=== PATIENT | female | born 1935 | race Caucasian/White ===

== ENCOUNTER → 2018-05-20 | Outpatient (CLI) | payer OTHER | LOC: MNL 17:46 | PROVIDERS: ATTEND Pediatrics | DX: N32.81 Overactive bladder (principal) ==

== ENCOUNTER → 2018-09-01 | Outpatient (CLI) | payer MEDICARE, MEDICAID ==
[2018-09-01 16:17] LABS: BILIRUBIN,URINE NEGATIVE (NEGATIVE); CLARITY,URINE CLEAR; COLOR,URINE YELLOW; GLUCOSE, URINE (UA) NEGATIVE (NEGATIVE); KETONES,URINE NEGATIVE (NEGATIVE); NITRITE,URINE NEGATIVE (NEGATIVE); PH,URINE 6.5 (5-9); PROTEIN,URINE NEGATIVE (NEGATIVE)
[2018-09-01 16:18] LABS: BACTERIA,URINE NEGATIVE /HPF; LEUKOCYTE ESTERASE ,URINE NEGATIVE (NEGATIVE); UROBILINOGEN,URINE NORMAL (NORMAL)
== END ==
LOC: LAB FS 15:22
PROVIDERS: ATTEND Pediatrics
DX: R30.0 Dysuria (principal)
CPT/HCPCS: 81000

== ENCOUNTER → 2018-12-11 | Outpatient (CLI) | payer MEDICARE, MEDICAID ==
--- NOTE | 2018-12-11 15:09 | Diagnostic Imaging Report ---
INDICATION: Bilateral shoulder pain. TIME OF EXAM: 2:24 PM FINDINGS: Multiple views of bilateral shoulders were obtained. Left shoulder shows normal glenohumeral alignment. There is normal acromioclavicular alignment. Acromiohumeral space is significantly narrowed consistent with chronic rotator cuff arthropathy. No fracture is seen. There are degenerative changes of the left shoulder glenohumeral joint. Right shoulder does demonstrate abnormal location of the humeral head in relation to the glenoid. This does project anteriorly and is suggestive of anterior shoulder dislocation/subluxation. Clinical correlation is recommended. Acromioclavicular alignment is normal. There are severe degenerative changes at the glenohumeral joint. No fractures are seen. IMPRESSION: Bilateral chronic changes. There also appears to be right shoulder anterior dislocation/subluxation. No acute fractures are seen. Dictated by: Dictated on workstation # [id number]
== END ==
LOC: RAD FS 14:15
PROVIDERS: ATTEND Nurse Practitioner
DX: M19.011 Primary osteoarthritis, right shoulder (principal); M19.012 Primary osteoarthritis, left shoulder

== ENCOUNTER → 2019-01-05 | Outpatient (CLI) | payer MEDICARE, MEDICAID ==
[2019-01-05 16:26] LABS: CLARITY,URINE TURBID; COLOR,URINE YELLOW; PROTEIN,URINE 1+ (NEGATIVE)
[2019-01-05 16:27] LABS: BACTERIA,URINE LARGE /HPF; BILIRUBIN,URINE NEGATIVE (NEGATIVE); GLUCOSE, URINE (UA) NEGATIVE (NEGATIVE); KETONES,URINE TRACE (NEGATIVE); LEUKOCYTE ESTERASE ,URINE 3+ (NEGATIVE); NITRITE,URINE NEGATIVE (NEGATIVE); WBC,URINE TNTC /HPF
== END ==
LOC: LAB FS 14:54
PROVIDERS: ATTEND Pediatrics
DX: R31.9 Hematuria, unspecified (principal)
CPT/HCPCS: 81000; 87077; 87088

== ENCOUNTER 2019-01-07 02:28 | Emergency (ER) | payer MEDICARE, MEDICAID ==
[~2019-01-07] VITALS: Ht 152 cm; Wt 44.0 kg
--- NOTE | 2019-01-07 02:44 | ED General ---
General Chief Complaint: Cardiac/General Problems Stated Complaint: FACIAL SWELLING, RAPID HEART RATE Source of Information: Patient, EMS Exam Limitations: Other (clinical condition) History of Present Illness Date Seen by Provider: Jan 07, 2019 Time Seen by Provider: 02:30 Initial Comments The patient is an 83-year-old female who presents via EMS from [facility] for evaluation of hypertension, tachycardia, questionable right-sided facial swelling, and questionable slurred speech. Apparently the patient pressed her call light in the middle the night stating that she "wasn't feeling quite right". He was found that her blood pressure was elevated to 168/115. At that time it was felt like she might have some right-sided facial swelling and that she was having some difficulty speaking. She does have a history of Parkinson's and is a DO NOT RESUSCITATE. Per [facility] documentation the patient's daughter is in route to the emergency department. The patient is difficult to understand due to her parkinsonian disease and it is unknown if this is her baseline. She denies vision changes, headache, neck pain or neck stiffness, chest pain or shortness of breath, abdominal or back pain, focal weakness or focal numbness. There is no facial droop upon arrival. Her blood pressure has spontaneously improved to approximately 140/90. Per the [facility] doctor mentation the patient was diagnosed with UTI yesterday and was started on ciprofloxacin. Timing/Duration: 1 Hour Severity: Mild Associated Systoms: Denies Symptoms Allergies and Home Medications Allergies Coded Allergies: hydrochlorothiazide (Verified Allergy, Unknown, 01/07/19) ibuprofen (Verified Allergy, Unknown, 01/07/19) Patient Home Medication List Home Medication List Reviewed: Yes Review of Systems Review of Systems Constitutional: no symptoms reported EENTM: no symptoms reported Respiratory: no symptoms reported Cardiovascular: no symptoms reported Genitourinary: no symptoms reported Musculoskeletal: no symptoms reported Skin: no symptoms reported Psychiatric/Neurological: Other (difficulty speaking) Hematologic/Lymphatic: No Symptoms Reported Immunological/Allergic: no symptoms reported All Other Systems Reviewed Negative Unless Noted: Yes Past Geopzoz-Aeultz-Guaxmp Hx Past Med/Social Hx: Reviewed Nursing Past Med/Soc Hx Patient Social History Recent Foreign Travel: No Contact w/Someone Who Travel: No Physical Exam Vital Signs Vital Signs - First Documented 01/07/19 02:46 Temp 37.3 Pulse 109 B/P (MAP) 142/90 (107) Pulse Ox 94 O2 Delivery Room Air Capillary Refill : Height, Weight, BMI Height: '" Weight: lbs. oz. kg; BMI Method: General Appearance: No Apparent Distress HEENT: PERRL/EOMI, Pharynx Normal Neck: Full Range of Motion, Non Tender, Supple Respiratory: Chest Non Tender, Lungs Clear, Normal Breath Sounds, No Accessory Muscle Use, No Respiratory Distress Cardiovascular: Regular Rate, Rhythm, No Edema, No Murmur, Normal Peripheral Pulses Gastrointestinal: Normal Bowel Sounds, Non Tender, Soft Extremity: Normal Capillary Refill, Non Tender, No Calf Tenderness Neurologic/Psychiatric: Alert, No Motor/Sensory Deficits, Normal Mood/Affect, Other (no facial droop, speech is difficult to understand) Skin: Normal Color, Warm/Dry Progress/Results/Core Measures Suspected Sepsis SIRS Temperature: Pulse: Respiratory Rate: Laboratory Tests 01/07/19 02:45: White Blood Count 2.9L Blood Pressure / Mean: Laboratory Tests 01/07/19 02:45: Creatinine 0.89, INR Comment 1.1, Platelet Count 220, Total Bilirubin 1.4H Results/Orders Lab Results Laboratory Tests Test 01/07/19 02:45 Range/Units White Blood Count 2.9 L 4.3-11.0 10^3/uL Red Blood Count 4.40 4.35-5.85 10^6/uL Hemoglobin 13.9 11.5-16.0 G/DL Hematocrit 41 35-52 % Mean Corpuscular Volume 94 80-99 FL Mean Corpuscular Hemoglobin 32 25-34 PG Mean Corpuscular Hemoglobin Concent 34 32-36 G/DL Red Cell Distribution Width 15.7 H 10.0-14.5 % Platelet Count 220 130-400 10^3/uL Mean Platelet Volume 9.2 7.4-10.4 FL Neutrophils (%) (Auto) 88 H 42-75 % Lymphocytes (%) (Auto) 9 L 12-44 % Monocytes (%) (Auto) 1 0-12 % Eosinophils (%) (Auto) 2 0-10 % Basophils (%) (Auto) 0 0-10 % Neutrophils # (Auto) 2.5 1.8-7.8 X 10^3 Lymphocytes # (Auto) 0.3 L 1.0-4.0 X 10^3 Monocytes # (Auto) 0.0 0.0-1.0 X 10^3 Eosinophils # (Auto) 0.1 0.0-0.3 10^3/uL Basophils # (Auto) 0.0 0.0-0.1 10^3/uL Neutrophils % (Manual) 42 % Lymphocytes % (Manual) 12 % Monocytes % (Manual) 3 % Eosinophils % (Manual) 1 % Metamyelocytes % 1 % Band Neutrophils 41 % Blood Morphology Comment NORMAL Prothrombin Time 14.8 H 12.2-14.7 SEC INR Comment 1.1 0.8-1.4 Activated Partial Thromboplast Time 29 24-35 SEC Sodium Level 131 L 135-145 MMOL/L Potassium Level 5.0 3.6-5.0 MMOL/L Chloride Level 92 L 98-107 MMOL/L Carbon Dioxide Level 24 21-32 MMOL/L Anion Gap 15 H 5-14 MMOL/L Blood Urea Nitrogen 27 H 7-18 MG/DL Creatinine 0.89 0.60-1.30 MG/DL Estimat Glomerular Filtration Rate 60 BUN/Creatinine Ratio 30 Glucose Level 99 70-105 MG/DL Calcium Level 9.2 8.5-10.1 MG/DL Corrected Calcium 9.4 8.5-10.1 MG/DL Magnesium Level 1.6 1.6-2.4 MG/DL Total Bilirubin 1.4 H 0.1-1.0 MG/DL Aspartate Amino Transf (AST/SGOT) 68 H 5-34 U/L Alanine Aminotransferase (ALT/SGPT) 15 0-55 U/L Alkaline Phosphatase 236 H 40-136 U/L Troponin I < 0.30 <0.30 NG/ML Pro-B-Type Natriuretic Peptide 5440.0 H <75.0 PG/ML Total Protein 6.7 6.4-8.2 GM/DL Albumin 3.8 3.2-4.5 GM/DL My Orders Orders - KENDALL CORNEJO DO Cbc With Automated Diff (01/07/19 02:36) Magnesium (01/07/19 02:36) Chest 1 View Ap/Pa Only (01/07/19 02:36) Ekg Tracing (01/07/19 02:36) Comprehensive Metabolic Panel (01/07/19 02:36) Protime With Inr (01/07/19 02:36) Partial Thromboplastin Time (01/07/19 02:36) O2 (01/07/19 02:36) Monitor-Rhythm Ecg Trace Only (01/07/19 02:36) Ed Iv/Invasive Line Start (01/07/19 02:36) Troponin I Fs (01/07/19 02:36) Ct Head Wo (01/07/19 02:36) Ua Culture If Indicated (01/07/19 02:36) Probnp Fs (01/07/19 03:03) Manual Differential (01/07/19 02:45) Furosemide Injection (Lasix Injection) (01/07/19 03:45) Medications Given in ED Current Medications Medications Dose Ordered Sig/Willie Route Start Time Stop Time Status Last Admin Dose Admin Furosemide 40 mg ONCE ONCE IVP 01/07/19 03:45 01/07/19 03:47 DC 01/07/19 03:52 40 MG Vital Signs/I&O 01/07/19 02:46 Temp 37.3 Pulse 109 B/P (MAP) 142/90 (107) Pulse Ox 94 O2 Delivery Room Air Capillary Refill : Progress Note : Progress Note @0300 - The patient's daughter arrives at this time and does not feel like there is any facial swelling or droop. She states the patient does not have her teeth and and this could be part of the reason why she is having difficulty speaking. She reports the patient has had a TIA in the past. @0312 - Pt noted to have right shoulder dislocation however she is denying acute pain or injury and this was demonstrated on an XR from 12/11/18. @0350 - Family prefers [facility] as the patient has received care there recently. @0400 - Case d/w the transfer line at [facility], the hospitalist [employer] Gris Irving will call back shortly. @0414 - Gris Irving states that she will talk about supervisor type disk quality control and plans to accept the patient to a telemetry bed. They will call back shortly to confirm. @0428 - Pt accepted for transfer at [facility]. ECG EKG : Comment @0237 - Atrial flutter, rate of 95, normal axis, no acute ischemic findings noted, no STEMI, reviewed and interpreted by myself Departure Impression Primary Impression: Acute exacerbation of CHF (congestive heart failure) Additional Impression: Requires supplemental oxygen Disposition: XFER SHT-TRM HOSP Condition: Stable Transfer Transfer Reason: Patient preference Time Spoke to Accepting Phy: 04:14 Transfer Progress Notes Gris Irving PARK MAINTAINER at [facility] accepts the transfer to a tele bed Transfer Time: 04:15 Transfer Facility: [facility] Method of Transfer: EMS Departure-Patient Inst. Referrals: NICA STONE MD (PCP/Family) Primary Care Physician KENDALL CORNEJO DO Jan 07, 2019 02:43
[2019-01-07 03:37] LABS: HEMATOCRIT 41 % (35-52); HEMOGLOBIN 13.9 G/DL (11.5-16.0); MEAN CORPUSCULAR HEMOGLOBIN 32 PG (25-34); MEAN CORPUSCULAR HGB CONC 34 G/DL (32-36); MEAN CORPUSCULAR VOLUME 94 FL (80-99); WHITE BLOOD COUNT 2.9 10^3/uL (4.3-11.0)
[2019-01-07 03:38] LABS: BASOPHILS % (AUTO) 0 % (0-10); EOSINOPHILS # (AUTO) 0.1 10^3/uL (0.0-0.3); EOSINOPHILS % (AUTO) 2 % (0-10); LYMPHOCYTES # (AUTO) 0.3 X 10^3 (1.0-4.0); LYMPHOCYTES % (AUTO) 9 % (12-44); MEAN PLATELET VOLUME 9.2 FL (7.4-10.4); MONOCYTES % (AUTO) 1 % (0-12); NEUTROPHILS # (AUTO) 2.5 X 10^3 (1.8-7.8); NEUTROPHILS % (AUTO) 88 % (42-75); PLATELET COUNT 220 10^3/uL (130-400); RED CELL DISTRIBUTION WIDTH 15.7 % (10.0-14.5)
[2019-01-07 03:39] LABS: BAND NEUTROPHILS 41 %; EOSINOPHILS % (MANUAL) 1 %; LYMPHOCYTES % (MANUAL) 12 %; METAMYELOCYTES % 1 %; MONOCYTES % (MANUAL) 3 %; NEUTROPHILS % (MANUAL) 42 %
[2019-01-07 03:40] LABS: RBC MORPH NORMAL
[2019-01-07 03:41] LABS: BILIRUBIN,TOTAL 1.4 MG/DL (0.1-1.0); CALCIUM 9.2 MG/DL (8.5-10.1); CREATININE SERUM 0.89 MG/DL (0.60-1.30); MAGNESIUM 1.6 MG/DL (1.6-2.4)
[2019-01-07 03:42] LABS: ALBUMIN 3.8 GM/DL (3.2-4.5); TOTAL PROTEIN 6.7 GM/DL (6.4-8.2)
[2019-01-07 03:43] LABS: INR 1.1 (0.8-1.4); PROTHROMBIN TIME PATIENT 14.8 SEC (12.2-14.7)
[2019-01-07] MEDS ORDERED: FUROSEMIDE 40 MG/4 ML INJ (LASIX) IVP ONE (03:45)
[2019-01-07 05:00] VITALS: BP 117/66
--- NOTE | 2019-01-07 06:47 | Diagnostic Imaging Report ---
PROCEDURE: CT head without contrast. TECHNIQUE: Multiple contiguous axial images were obtained through the brain without the use of intravenous contrast. Auto Exposure Controls were utilized during the CT exam to meet ALARA standards for radiation dose reduction. INDICATION: Onset of hypertension along with facial swelling and slurred speech. COMPARISON: None FINDINGS: There are diffuse atrophic changes with prominence of the ventricles and sulci. There are scattered areas of decreased attenuation, nonspecific but likely changes of chronic small vessel ischemic disease. There is otherwise normal waite-white differentiation. No abnormal areas of attenuation to suggest edema from ischemia. There is no midline shift or mass effect. No evidence for acute intracranial hemorrhage or abnormal extra-axial fluid collection. Bony calvarium is intact. Paranasal sinuses are clear. Mastoid air cells also appear clear. IMPRESSION: 1. No CT evidence for acute intracranial abnormality. 2. Age-related atrophic changes with changes of small vessel ischemic disease. A preliminary report was provided by [facility]. Dictated by: Dictated on workstation # [id number]
--- NOTE | 2019-01-07 06:56 | Diagnostic Imaging Report ---
INDICATION: Onset of hypertension, facial swelling and slurred speech. TECHNIQUE: Single view chest 2:34 AM. CORRELATION STUDY: None FINDINGS: Heart size enlarged. Mediastinum prominent. There is component of pulmonary vascular congestion present. Largely chronic appearing changes about the lung parenchyma including interstitial markings. Component of mild edema not excluded. No consolidating infiltrate. No effusion. No pneumothorax. There is a dislocated right shoulder with markedly advanced degenerative changes of both shoulders. IMPRESSION: 1. Cardiac enlargement with component of mild vascular congestion. Component of mild interstitial edema also suspected. 2. Dislocated right shoulder. Dictated by: Dictated on workstation # [id number]
== END 2019-01-07 05:00 | disposition short-term general hospital (02) ==
LOC: EDUNIT# 02:28 → ER FS 02:30
DX: I11.0 Hypertensive heart disease with heart failure (principal); I50.9 Heart failure, unspecified; Z99.81 Dependence on supplemental oxygen; Z88.6 Allergy status to analgesic agent; Z88.8 Allergy status to other drugs, medicaments and biological substances
CPT/HCPCS: 36415; 70450; 71045; 80053; 83735; 83880; 84484; 85007; 85027; 85610; 85730; 93005; 93041; 96374

== ENCOUNTER 2019-03-08 06:42 | Emergency (ER) | payer MEDICARE, MEDICAID ==
[~2019-03-08] VITALS: Ht 147.3 cm; Wt 50.3 kg
--- NOTE | 2019-03-08 06:58 | ED Cough/URI ---
General Chief Complaint: Respiratory Problems Stated Complaint: RESP ISSUES Source: patient, EMS, senior living records Exam Limitations: no limitations History of Present Illness Date Seen by Provider: Mar 08, 2019 Time Seen by Provider: 06:55 Initial Comments Patient [facility] in by [facility] from [facility]. jail reports that they were concerned that the patient was having labored breathing. Patient doesn't have any complaints and is not sure why she is here. She denies any shortness of breath chest pain or any other systemic complaints. Allergies and Home Medications Allergies Coded Allergies: hydrochlorothiazide (Verified Allergy, Unknown, 01/07/19) ibuprofen (Verified Allergy, Unknown, 01/07/19) Patient Home Medication List Home Medication List Reviewed: Yes Review of Systems Review of Systems Constitutional: see HPI; No chills, No fever EENTM: no symptoms reported Respiratory: cough; No short of breath Cardiovascular: no symptoms reported Gastrointestinal: no symptoms reported Genitourinary: no symptoms reported Musculoskeletal: no symptoms reported Skin: no symptoms reported Past Yseblqb-Wyidhw-Fosmne Hx Past Med/Social Hx: Reviewed Nursing Past Med/Soc Hx Patient Social History 2nd Hand Smoke Exposure: No Recent Foreign Travel: No Contact w/Someone Who Travel: No Past Medical History Respiratory: No Cardiac: Yes Hypertension, Irregular Heartbeat Neurological: Yes Parkinson's Disease Genitourinary: No Gastrointestinal: No Musculoskeletal: Yes Arthritis Endocrine: Yes Hypothyroidsim HEENT: No Cancer: No Psychosocial: No Integumentary: No Blood Disorders: No Physical Exam Vital Signs - First Documented 03/08/19 06:50 Temp 36.1 Pulse 67 Resp 12 B/P (MAP) 207/116 (146) Pulse Ox 93 O2 Delivery Room Air Capillary Refill : Height: '" Weight: lbs. oz. kg; 19.00 BMI Method: General Appearance: WD/WN, no apparent distress Neck: non-tender Respiratory: chest non-tender, normal breath sounds, decreased breath sounds (mild diffuse) Cardiovascular: normal peripheral pulses, regular rate, rhythm Gastrointestinal: non tender Extremities: normal range of motion Neurologic/Psychiatric: no motor/sensory deficits, alert Skin: normal color Progress/Results/Core Measures Suspected Sepsis SIRS Temperature: Pulse: Respiratory Rate: Laboratory Tests 03/08/19 06:50: White Blood Count 8.4 Blood Pressure / Mean: Laboratory Tests 03/08/19 06:50: Creatinine 0.74, Platelet Count 293 Results/Orders Lab Results Laboratory Tests Test 03/08/19 06:50 Range/Units White Blood Count 8.4 4.3-11.0 10^3/uL Red Blood Count 3.88 L 4.35-5.85 10^6/uL Hemoglobin 12.4 11.5-16.0 G/DL Hematocrit 37 35-52 % Mean Corpuscular Volume 96 80-99 FL Mean Corpuscular Hemoglobin 32 25-34 PG Mean Corpuscular Hemoglobin Concent 33 32-36 G/DL Red Cell Distribution Width 14.8 H 10.0-14.5 % Platelet Count 293 130-400 10^3/uL Mean Platelet Volume 9.1 7.4-10.4 FL Sodium Level 135 135-145 MMOL/L Potassium Level 4.0 3.6-5.0 MMOL/L Chloride Level 95 L 98-107 MMOL/L Carbon Dioxide Level 28 21-32 MMOL/L Anion Gap 12 5-14 MMOL/L Blood Urea Nitrogen 18 7-18 MG/DL Creatinine 0.74 0.60-1.30 MG/DL Estimat Glomerular Filtration Rate > 60 BUN/Creatinine Ratio 24 Glucose Level 90 70-105 MG/DL Calcium Level 9.1 8.5-10.1 MG/DL Pro-B-Type Natriuretic Peptide 3477.0 H <75.0 PG/ML Micro Results Microbiology 03/08/19 Influenza Types A,B Antigen (JOSE) - Final, Complete My Orders Orders - CRISTINO DIAZ DO Basic Metabolic Panel (03/08/19 06:58) Cbc No Diff (03/08/19 06:58) Influenza A And B Antigens (03/08/19 06:58) Probnp Fs (03/08/19 06:58) Chest Pa/Lat (2 View) (03/08/19 06:58) Nitroglycerin 0.4 Mg Btl 25's (Nitrostat (03/08/19 08:15) Vital Signs/I&O 03/08/19 06:50 Temp 36.1 Pulse 67 Resp 12 B/P (MAP) 207/116 (146) Pulse Ox 93 O2 Delivery Room Air Capillary Refill : Progress Note : Time: 08:15 Progress Note Patient with no acute findings on lab, x-ray or physical exam. Patient does have elevated blood pressure but has chronic hypertension. Blood pressure improved from systolics of 200 and systolics of 184 with no treatment. She is due for her morning blood pressure medication. We will give her a nitroglycerin sublingual to help with the blood pressure and a mild chronic pulmonary edema discharge her back to the senior living where she should take her a.m. blood pressure medications. I did suggest with family that they follow-up with Dr. [place] for a reevaluation of her blood pressure possibly blood pressure medication since she is on a very small dose. Patient shows no signs of a bacterial pneumonia or bronchitis. Patient will be discharged back to senior living in stable condition. Departure Impression Primary Impression: Cough Additional Impressions: Chronic pulmonary edema Hypertension Qualified Codes: I10 - Essential (primary) hypertension Disposition: HOME, SELF-CARE Condition: Stable Departure-Patient Inst. Referrals: NICA COLORADO MD (PCP/Family) Primary Care Physician Follow-up next week for recheck of symptoms Patient Instructions: Cough, Adult (DC), High Blood Pressure (DC), Medicines fo r High Blood Pressure Add. Discharge Instructions: Emergency department focuses on treating and ruling out life-threatening diseases. Whenever possible, a diagnosis is given. However, most patients are given an impression based on their history, physical exam, and workup during your brief time in the ER. Information about probable diagnosis and other educat ional material has been provided. Please take the time to read and understand this information. It is very important that you follow up with a physician as discussed during the visit today. Failure to adhere to your follow-up instructions may lead to severe disability, injury, or so please make sure to keep your appointments or obtain one as requested. Please keep in mind the emergency department is not designed to your primary care or "family doctor" and nonurgent issues are best evaluated by an outpatient physician All discharge instructions reviewed with patient and/or family. Voiced understanding. CRISTINO DIAZ DO Mar 08, 2019 06:58
[2019-03-08 07:07] LABS: HEMOGLOBIN 12.4 G/DL (11.5-16.0); MEAN PLATELET VOLUME 9.1 FL (7.4-10.4); RED CELL DISTRIBUTION WIDTH 14.8 % (10.0-14.5); WHITE BLOOD COUNT 8.4 10^3/uL (4.3-11.0)
--- NOTE | 2019-03-08 07:30 | NUR ---
Addressed Hypertension with Dr Cuevas. Pt has HTN med due at [facility], this is not available in ER. Dr awaiting CXR to correlate. Family is arriving, RN giving updates. Pending work up. No Kristian-Stoke breathing noted but does have short 20-30 sec shallow breathes <10/min and triggers apnea alarm. Pt is physically immobile and decreased muscle tone.
[2019-03-08 07:32] LABS: BUN/CREATININE RATIO 24; CALCIUM 9.1 MG/DL (8.5-10.1); CARBON DIOXIDE 28 MMOL/L (21-32); CHLORIDE 95 MMOL/L (98-107); CREATININE SERUM 0.74 MG/DL (0.60-1.30); GFR ESTIMATED > 60; GLUCOSE 90 MG/DL (70-105); SODIUM 135 MMOL/L (135-145)
--- NOTE | 2019-03-08 08:06 | Diagnostic Imaging Report ---
EXAMINATION: Chest 2 view HISTORY: Cough for a few weeks. COMPARISON: 01/07/2019 FINDINGS: Cardiomegaly is again noted with central pulmonary vascular congestion. Prominent interstitial markings are seen throughout the lungs. No focal consolidation or mass. No large pleural effusion or pneumothorax. No acute osseous abnormalities. Severe degenerative changes are again noted in the bilateral shoulder joints. IMPRESSION: 1. Cardiomegaly with central pulmonary vascular congestion and interstitial edema. These findings are similar to the prior exam. No focal consolidation. No large pleural effusion. Dictated by: Dictated on workstation # [id number]
[2019-03-08] MEDS ORDERED: NITROGLYCERIN 0.4 MG SL TABS BTL 25'S SL PRN (08:15)
--- NOTE | 2019-03-08 08:21 | NUR ---
Pt was administered 1 NTG 0.4 mg SL for HTN.
--- NOTE | 2019-03-08 08:45 | NUR ---
Ready for depart, call report to BUNNY Peña RN. Family have all their questions answered. Understanding of her BP medication not available in ED is to be given when returned to her room. Dr did not recommend a fast acting Clonidine for chronic HTN or a beta driss as pulse rate < 60 at times on monitor.
[2019-03-08 09:20] VITALS: BP 181/97
--- NOTE | 2019-03-08 09:20 | NUR ---
Pt discharged to [facility] staff transportation awake and alert with no complaints. Pt had just been incont for 2nd time and was changed and placed on bedpan for need for possible BM. Pt did not have a BM. New depends placed on pt. Utilized gait belt to lift and transfer to . Family present and verbalize understanding of instructions being given to [facility]. Called report to Mariana Pena RN at . Pt's instructions and labs/xray report placed in packet returned to long term.
== END 2019-03-08 09:20 | disposition home or self-care (01) ==
LOC: EDUNIT# 06:42 → ER FS 06:44
DX: J81.1 Chronic pulmonary edema (principal); I10 Essential (primary) hypertension; G20 Parkinson's disease; E03.9 Hypothyroidism, unspecified; Z88.8 Allergy status to other drugs, medicaments and biological substances; Z88.6 Allergy status to analgesic agent
CPT/HCPCS: 36415; 71046; 80048; 83880; 85027; 87804

== ENCOUNTER → 2019-05-29 | Outpatient (CLI) | payer MEDICARE, MEDICAID ==
--- NOTE | 2019-05-29 13:53 | Diagnostic Imaging Report ---
PROCEDURE: CT head without contrast. TECHNIQUE: Multiple contiguous axial images were obtained through the brain without the use of intravenous contrast. Auto Exposure Controls were utilized during the CT exam to meet ALARA standards for radiation dose reduction. INDICATION: Severe headache. COMPARISON: 01/07/2019. FINDINGS: No hyperdense hemorrhage or space-occupying mass. No hydrocephalus or midline shift. Global atrophy is present. The periventricular white matter hypoattenuation is unchanged and most compatible with chronic microvascular ischemic disease. Bilateral cataract surgery has been performed. The mastoid air cells are clear. No skull fracture. IMPRESSION: 1. No acute intracranial process by CT. 2. Global atrophy with chronic microvascular ischemic disease, unchanged from 01/07/2019. Dictated by: Dictated on workstation # [id number]
== END ==
LOC: RAD FS 13:10
PROVIDERS: ATTEND Pediatrics
DX: I67.82 Cerebral ischemia (principal); G31.9 Degenerative disease of nervous system, unspecified
CPT/HCPCS: 70450

== ENCOUNTER 2019-08-23 08:02 | Emergency (ER) | payer MEDICARE, MEDICAID ==
--- OUTSIDE RECORDS SUMMARY | 2019-08-23 08:07 | XMS REPORT | Continuity of Care Document ---
Author Organization Unknown Address Unknown Phone Unavailable Allergies Active Description Code Type Severity Reaction Onset Reported/Identified Relationship to Patient Clinical Status Yes hydrochlorothiazide [id number] Drug Allergy Unknown N/A 01/07/2019 Yes ibuprofen [id number] Drug Allergy Unknown N/A 01/07/2019 Medications There is no data. Problems Date Dx Coded Attending Type Code Diagnosis Diagnosed By 05/21/2018 NICA STONE MD, Ot N32.81 OVERACTIVE BLADDER 06/14/2018 NICA STONE MD, Ot N32.81 OVERACTIVE BLADDER 07/05/2018 NICA STONE MD, Ot N32.81 OVERACTIVE BLADDER 07/05/2018 NICA STONE MD, Ot N32.81 OVERACTIVE BLADDER 09/04/2018 NICA STONE MD Ot R30.0 DYSURIA 12/14/2018 BRUCE MORENO Ot M19.011 PRIMARY OSTEOARTHRITIS, RIGHT SHOULDER 12/14/2018 BRUCE MORENO Ot M19.012 PRIMARY OSTEOARTHRITIS, LEFT SHOULDER 01/07/2019 NICA STONE MD Ot N32.81 OVERACTIVE BLADDER 01/07/2019 NICA STONE MD Ot R30.0 DYSURIA 01/07/2019 BRUCE MORENO Ot M19.011 PRIMARY OSTEOARTHRITIS, RIGHT SHOULDER 01/07/2019 BRUCE MORENO Ot M19.012 PRIMARY OSTEOARTHRITIS, LEFT SHOULDER 01/07/2019 NICA STONE MD Ot R31.9 HEMATURIA, UNSPECIFIED 01/07/2019 CHANTAL ARGUETA DO Ot I11. 0 HYPERTENSIVE HEART DISEASE WITH HEART FA 01/07/2019 CHANTAL ARGUETA DO Ot I50. 9 HEART FAILURE, UNSPECIFIED 01/07/2019 CHANTAL ARGUETA DO Ot R00. 0 TACHYCARDIA, UNSPECIFIED 01/07/2019 CHANTAL ARGUETA DO Ot Z88. 6 ALLERGY STATUS TO ANALGESIC AGENT STATUS 01/07/2019 CHANTAL ARGUETA DO Ot Z88. 8 ALLERGY STATUS TO OTH DRUG/MEDS/BIOL SUB 01/07/2019 KENDALL DO, CHANTAL B Ot Z99. 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 9 HEART FAILURE, UNSPECIFIED 01/12/2019 KENDALL TOLLIVER, CHANTAL B Ot R00. 0 TACHYCARDIA, UNSPECIFIED 01/12/2019 KENDALL TOLLIVER, CHANTAL B Ot Z88. 6 ALLERGY STATUS TO ANALGESIC AGENT STATUS 01/12/2019 KENDALL , CHANTAL B Ot Z88. 8 ALLERGY STATUS TO OTH DRUG/MEDS/BIOL SUB 01/12/2019 KENDALL , CHANTAL B Ot Z99. 81 DEPENDENCE ON SUPPLEMENTAL OXYGEN 01/22/2019 CHASE COOPER, NICA Meeks Ot R31.9 HEMATURIA, UNSPECIFIED 03/08/2019 DIAZ DO, CRISTINO L Ot E03.9 HYPOTHYROIDISM, UNSPECIFIED 03/08/2019 DIAZ DO, CRISTINO L Ot G20 PARKINSON'S DISEASE 03/08/2019 DIAZ DO, CRISTINO L Ot I10 ESSENTIAL (PRIMARY) HYPERTENSION 03/08/2019 DIAZ DO, CRISTINO L Ot J81.1 CHRONIC PULMONARY EDEMA 03/08/2019 DIAZ DO, CRISTINO L Ot R05 COUGH 03/08/2019 DIAZ DO, CRISTINO L Ot Z88.6 ALLERGY STATUS TO ANALGESIC AGENT STATUS 03/08/2019 DIAZ DO, CRISTINO L Ot Z88.8 ALLERGY STATUS TO OTH DRUG/MEDS/BIOL SUB 03/10/2019 DIAZ DO, CRISTINO L Ot E03.9 HYPOTHYROIDISM, UNSPECIFIED 03/10/2019 DIAZ DO, CRISTINO L Ot G20 PARKINSON'S DISEASE 03/10/2019 DIAZ DO, CRISTINO L Ot I10 ESSENTIAL (PRIMARY) HYPERTENSION 03/10/2019 DIAZ DO, CRISTINO L Ot J81.1 CHRONIC PULMONARY EDEMA 03/10/2019 DIAZ DO, CRISTINO L Ot R05 COUGH 03/10/2019 DIAZ DO, CRISTINO L Ot Z88.6 ALLERGY STATUS TO ANALGESIC AGENT STATUS 03/10/2019 DIAZ DO, CRISTINO L Ot Z88.8 ALLERGY STATUS TO OTH DRUG/MEDS/BIOL SUB 05/29/2019 NICA STONE MD Ot N32.81 OVERACTIVE BLADDER 05/29/2019 NICA STONE MD Ot R30.0 DYSURIA 05/29/2019 BRUCE MORENO Ot M19.011 PRIMARY OSTEOARTHRITIS, RIGHT SHOULDER 05/29/2019 BRUCE MORENO Ot M19.012 PRIMARY OSTEOARTHRITIS, LEFT SHOULDER 05/29/2019 CHASE COOPER, NICA Meeks Ot R31.9 HEMATURIA, UNSPECIFIED 06/01/2019 NICA STONE MD Ot N32.81 OVERACTIVE BLADDER 06/01/2019 NICA STONE MD Ot R30.0 DYSURIA 06/01/2019 BRUCE MORENO Ot M19.011 PRIMARY OSTEOARTHRITIS, RIGHT SHOULDER 06/01/2019 BRUCE MORENO Ot M19.012 PRIMARY OSTEOARTHRITIS, LEFT SHOULDER 06/01/2019 CHASE COOPER, NICA Meeks Ot R31.9 HEMATURIA, UNSPECIFIED 06/10/2019 CHASE COOPER, NICA Meeks Ot N32.81 OVERACTIVE BLADDER 06/10/2019 CHASE COOPER, NICA Meeks Ot R30.0 DYSURIA 06/10/2019 BRUCE MORENO Ot M19.011 PRIMARY OSTEOARTHRITIS, RIGHT SHOULDER 06/10/2019 BRUCE MORENO Ot M19.012 PRIMARY OSTEOARTHRITIS, LEFT SHOULDER 06/10/2019 CHASE COOPER, NICA Meeks Ot R31.9 HEMATURIA, UNSPECIFIED 06/10/2019 CHASE COOPER, NICA Meeks Ot G31.9 DEGENERATIVE DISEASE OF NERVOUS SYSTEM, 06/10/2019 CHASE COOPER, NICA Meeks Ot I67.82 CEREBRAL ISCHEMIA 06/16/2019 CHASE COOPER, NICA Meeks Ot G31.9 DEGENERATIVE DISEASE OF NERVOUS SYSTEM, 06/16/2019 CHASE COOPER, NICA Meeks Ot I67.82 CEREBRAL ISCHEMIA 06/17/2019 NICA STONE MD Ot G31.9 DEGENERATIVE DISEASE OF NERVOUS SYSTEM, 06/17/2019 NICA STONE MD Ot I67.82 CEREBRAL ISCHEMIA 06/18/2019 CHASE COOPER, NICA Meeks Ot G31.9 DEGENERATIVE DISEASE OF NERVOUS SYSTEM, 06/18/2019 CHASE COOPER, NICA Meeks Ot I67.82 CEREBRAL ISCHEMIA 06/19/2019 NICA STONE MD Ot N32.81 OVERACTIVE BLADDER 06/19/2019 CHASE COOPER, NICA Meeks Ot R30.0 DYSURIA 06/19/2019 BRUCE MORENO Ot M19.011 PRIMARY OSTEOARTHRITIS, RIGHT SHOULDER 06/19/2019 BRUCE MORENO Ot M19.012 PRIMARY OSTEOARTHRITIS, LEFT SHOULDER 06/19/2019 CHASE COOPER, NICA Meeks Ot R31.9 HEMATURIA, UNSPECIFIED 06/19/2019 NICA STONE MD, Ot G31.9 DEGENERATIVE DISEASE OF NERVOUS SYSTEM, 06/19/2019 NICA STONE MD, Ot I67.82 CEREBRAL ISCHEMIA 06/19/2019 NICA STONE MD, Ot N32.81 OVERACTIVE BLADDER 06/19/2019 NICA STONE MD, Ot R30.0 DYSURIA 06/19/2019 BRUCE MORENO Ot M19.011 PRIMARY OSTEOARTHRITIS, RIGHT SHOULDER 06/19/2019 BRUCE MORENO Ot M19.012 PRIMARY OSTEOARTHRITIS, LEFT SHOULDER 06/19/2019 NICA STONE MD, Ot R31.9 HEMATURIA, UNSPECIFIED 06/19/2019 NICA STONE MD, Ot G31.9 DEGENERATIVE DISEASE OF NERVOUS SYSTEM, 06/19/2019 NICA STONE MD, Ot I67.82 CEREBRAL ISCHEMIA Procedures There is no data. Results Test Result Range CULTURE, URINE - 05/27/18 16:58 CULTURE, URINE, ROUTINE SEE NOTE NRG [facility] - 06/03/18 09:58 GLUCOSE 96 mg/dL 65-99 UREA NITROGEN (BUN) 22 mg/dL 7-25 CREATININE 0.66 mg/dL 0.60-0.88 eGFR NON-AFR. [place] 81 mL/min/1.73m2 > OR = 60 eGFR 93 mL/min/1.73m2 > OR = 60 BUN/CREATININE RATIO NOT APPLICABLE (calc) 6-22 SODIUM 132 mmol/L 135-146 POTASSIUM 4.6 mmol/L 3.5-5.3 CHLORIDE 96 mmol/L 98-110 CARBON DIOXIDE 28 mmol/L 20-32 CALCIUM 8.7 mg/dL 8.6-10.4 [facility] - 07/01/18 09:58 GLUCOSE 94 mg/dL 65-99 UREA NITROGEN (BUN) 15 mg/dL 7-25 CREATININE 0.59 mg/dL 0.60-0.88 eGFR NON-AFR. [place] 84 mL/min/1.73m2 > OR = 60 eGFR 97 mL/min/1.73m2 > OR = 60 BUN/CREATININE RATIO 25 (calc) 6-22 SODIUM 135 mmol/L 135-146 POTASSIUM 4.3 mmol/L 3.5-5.3 CHLORIDE 98 mmol/L 98-110 CARBON DIOXIDE 26 mmol/L 20-32 CALCIUM 8.7 mg/dL 8.6-10.4 [facility] - 07/31/18 10:59 GLUCOSE 88 mg/dL 65-99 UREA NITROGEN (BUN) 17 mg/dL 7-25 CREATININE 0.66 mg/dL 0.60-0.88 eGFR NON-AFR. [place] 81 mL/min/1.73m2 > OR = 60 eGFR 93 mL/min/1.73m2 > OR = 60 BUN/CREATININE RATIO NOT APPLICABLE (calc) 6-22 SODIUM 129 mmol/L 135-146 POTASSIUM 4.3 mmol/L 3.5-5.3 CHLORIDE 94 mmol/L 98-110 CARBON DIOXIDE 28 mmol/L 20-32 CALCIUM 8.6 mg/dL 8.6-10.4 T4 FREE - 08/26/18 08:52 T4, FREE 0.8 ng/dL 0.8-1.8 TSH - 08/26/18 08:52 TSH 3.83 mIU/L 0.40-4.50 Complete urinalysis with reflex to cultu re - 09/01/18 14:40 Urine color determination YELLOW NRG Urine clarity determination CLEAR NR G Urine pH measurement by test strip 6.5 5-9 Specific gravity of urine by test strip < 1.016-1.022 Urine protein assay by test strip, semi-quantitative NEGATIVE NEGATIVE Urine glucose detection by automated test strip NE GATIVE NEGATIVE Erythrocytes detection in urine sediment by light micr oscopy NEGATIVE NEGATIVE Urine ketones detection by automated test strip NE GATIVE NEGATIVE Urine nitrite detection by test strip NEGATIVE NEGATIVE Urine total bilirubin detection by test strip NEGA TIVE NEGATIVE Urine urobilinogen measurement by automated test strip (mass/volume) NORMAL NORMAL Urine leukocyte esterase detection by dipstick NEG ATIVE NEGATIVE Automated urine sediment erythrocyte cou nt by microscopy (number/high power field) NONE NRG Automated urine sediment leukocyte count by microscopy (number/high power field) NONE NRG Bacteria detection in urine sediment by light microsco py NEGATIVE NRG Squamous epithelial cells detection in u rine sediment by light microscopy 2-5 NRG Crystals detection in urine sediment by light microsco py NONE NRG Casts detection in urine sediment by light microscopy NONE NRG Mucus detection in urine sediment by light microscopy NEGATIVE NRG Complete urinalysis with reflex to culture NO NRG Complete urinalysis with reflex to cultu re - 01/05/19 14:33 Urine color determination YELLOW NRG Urine clarity determination TURBID NR G Urine pH measurement by test strip 6.0 5-9 Specific gravity of urine by test strip 1.015 1.016-1.022 Urine protein assay by test strip, semi-quantitative 1+ NEGATIVE Urine glucose detection by automated test strip NE GATIVE NEGATIVE Erythrocytes detection in urine sediment by light micr oscopy 3+ NEGATIVE Urine ketones detection by automated test strip TR FLORES NEGATIVE Urine nitrite detection by test strip NEGATIVE NEGATIVE Urine total bilirubin detection by test strip NEGA TIVE NEGATIVE Urine urobilinogen measurement by automated test strip (mass/volume) 0.2 mg/dL NORMAL Urine leukocyte esterase detection by dipstick 3+ NEGATIVE Automated urine sediment erythrocyte cou nt by microscopy (number/high power field) [HPF] NRG Automated urine sediment leukocyte count by microscopy (number/high power field) TNTC NRG Bacteria detection in urine sediment by light microsco py LARGE NRG Squamous epithelial cells detection in u rine sediment by light microscopy NONE NRG Crystals detection in urine sediment by light microsco py NONE NRG Casts detection in urine sediment by light microscopy NONE NRG Mucus detection in urine sediment by light microscopy NEGATIVE NRG Complete urinalysis with reflex to culture YES NRG Bacterial urine culture - 01/05/19 14:33 Bacterial urine culture [id number] NRG COLONY COUNT >100,000/ML NRG FTX;REPORTABLE SUSCEPTIBILITY REPORTED 01-08-19, 1 152 NRG Dirithromycin susceptibility test by dis k diffusion - 01/05/19 14:33 Gentamicin susceptibility test by minimum inhibitory c oncentration > NRG Trimethoprim/sulfamethoxazole susceptibi lity test by minimum inhibitoryconcentration > NRG Levofloxacin susceptibility test by minimum inhibitory concentration > NRG Ampicillin susceptibility test by minimum inhibitory c oncentration > NRG Cefazolin susceptibility test by minimum inhibitory co ncentration 4 NRG Ceftriaxone susceptibility test by minimum inhibitory concentration <= NRG Ciprofloxacin susceptibility test by minimum inhibitor y concentration > NRG Meropenem susceptibility test by minimum inhibitory co ncentration <= NRG Nitrofurantoin susceptibility test by mi nimum inhibitory concentration 32 NRG Amoxicillin and clavulanate potassium susc JOSE = NRG Complete blood count (CBC) with automate d white blood cell (WBC) differential - 01/07/19 02:45 Blood leukocytes automated count (number/volume) 2.9 10*3/uL 4.3-11.0 Blood erythrocytes automated count (number/volume) 4.40 10*6/uL 4.35-5.85 Venous blood hemoglobin measurement (mass/volume) 13.9 g/dL 11.5-16.0 Blood hematocrit (volume fraction) 41 % 35-52 Automated erythrocyte mean corpuscular volume 94 [ foz_us] 80-99 Automated erythrocyte mean corpuscular h emoglobin (mass per erythrocyte) 32 pg 25-34 Automated erythrocyte mean corpuscular h emoglobin concentration measurement (mass/volume) 34 g/dL 32-36 Automated erythrocyte distribution width ratio 15. 7 % 10.0- 14.5 Automated blood platelet count (count/volume) 220 10*3/uL 130-400 Automated blood platelet mean volume measurement 9.2 [foz_us] 7.4-10.4 Automated blood neutrophils/100 leukocytes 88 % 42-75 Automated blood lymphocytes/100 leukocytes 9 % 12-44 Blood monocytes/100 leukocytes 1 % 0-12 Automated blood eosinophils/100 leukocytes 2 % 0-10 Automated blood basophils/100 leukocytes 0 % 0-10 Blood neutrophils automated count (number/volume) 2.5 10*3 1.8-7.8 Blood lymphocytes automated count (number/volume) 0.3 10*3 1.0-4.0 Blood monocytes automated count (number/volume) 0. 0 10*3 0.0-1.0 Automated eosinophil count 0.1 10*3/uL 0 .0-0.3 Automated blood basophil count (count/volume) 0.0 10*3/uL 0.0-0.1 Manual absolute plasma cell count - 12/17 06/03 02:45 Blood monocytes/100 leukocytes 3 % NRG Manual blood segmented neutrophils/100 leukocytes 42 % NRG Blood band neutrophils/100 leukocytes 41 % NRG Manual blood lymphocytes/100 leukocytes 12 % NRG Manual eosinophils/100 leukocytes in nose 1 % NRG Blood erythrocyte morphology finding identification NORMAL NRG Manual blood metamyelocytes/100 leukocytes 1 % NRG PROBNP FS - 01/07/19 02:45 PROBNP FS 5440.0 pg/mL <75.0 TROPONIN I FS - 01/07/19 02:45 TROPONIN I FS < 0.30 <0.30 Comprehensive metabolic panel - 01/07/19 02:45 Serum or plasma sodium measurement (moles/volume) 131 mmol/L 135-145 Serum or plasma potassium measurement (moles/volume) 5.0 mmol/L 3.6-5.0 Serum or plasma chloride measurement (moles/volume) 92 mmol/L 98-107 Carbon dioxide 24 mmol/L 21-32 Serum or plasma anion gap determination (moles/volume) 15 mmol/L 5-14 Serum or plasma urea nitrogen measurement (mass/volume ) 27 mg/dL 7-18 Serum or plasma creatinine measurement (mass/volume) 0.89 mg/dL 0.60-1.30 Serum or plasma urea nitrogen/creatinine mass ratio 30 NRG Serum or plasma creatinine measurement w ith calculation of estimated glomerular filtration rate 60 NRG Serum or plasma glucose measurement (mass/volume) 99 mg/dL 70-105 Serum or plasma calcium measurement (mass/volume) 9.2 mg/dL 8.5-10.1 Serum or plasma total bilirubin measurement (mass/volu me) 1.4 mg/dL 0.1-1.0 Serum or plasma alkaline phosphatase dylan surement (enzymatic activity/volume) 236 U/L 40-136 Serum or plasma aspartate aminotransfera se measurement (enzymatic activity/volume) 68 U/L 5-34 Serum or plasma alanine aminotransferase measurement (enzymatic activity/volume) 15 U/L 0-55 Serum or plasma protein measurement (mass/volume) 6.7 g/dL 6.4-8.2 Serum or plasma albumin measurement (mass/volume) 3.8 g/dL 3.2-4.5 CALCIUM CORRECTED 9.4 mg/dL 8.5-10.1 Magnesium - 01/07/19 02:45 Magnesium 1.6 mg/dL 1.6-2.4 PT panel in platelet poor plasma by coag ulation assay - 01/07/19 02:45 Prothrombin time (PT) in platelet poor plasma by coagu lation assay 14.8 s 12.2-14.7 INR in platelet poor plasma or blood by coagulation as say 1.1 0.8-1.4 Activated partial thromboplastin time (a PTT) in platelet poor plasma bycoagulation assay - 01/07/19 02:45 Activated partial thromboplastin time (a PTT) in platelet poor plasma bycoagulation assay 29 s 24-35 Automated blood complete blood count (he mogram) panel - 03/08/19 06:50 Blood leukocytes automated count (number/volume) 8.4 10*3/uL 4.3-11.0 Blood erythrocytes automated count (number/volume) 3.88 10*6/uL 4.35-5.85 Venous blood hemoglobin measurement (mass/volume) 12.4 g/dL 11.5-16.0 Blood hematocrit (volume fraction) 37 % 35-52 Automated erythrocyte mean corpuscular volume 96 [ foz_us] 80-99 Automated erythrocyte mean corpuscular h emoglobin (mass per erythrocyte) 32 pg 25-34 Automated erythrocyte mean corpuscular h emoglobin concentration measurement (mass/volume) 33 g/dL 32-36 Automated erythrocyte distribution width ratio 14. 8 % 10.0- 14.5 Automated blood platelet count (count/volume) 293 10*3/uL 130-400 Automated blood platelet mean volume measurement 9.1 [foz_us] 7.4-10.4 Whole blood basic metabolic panel - 02/16 05/06 06:50 Serum or plasma sodium measurement (moles/volume) 135 mmol/L 135-145 Serum or plasma potassium measurement (moles/volume) 4.0 mmol/L 3.6-5.0 Serum or plasma chloride measurement (moles/volume) 95 mmol/L 98-107 Carbon dioxide 28 mmol/L 21-32 Serum or plasma anion gap determination (moles/volume) 12 mmol/L 5-14 Serum or plasma urea nitrogen measurement (mass/volume ) 18 mg/dL 7-18 Serum or plasma creatinine measurement (mass/volume) 0.74 mg/dL 0.60-1.30 Serum or plasma urea nitrogen/creatinine mass ratio 24 NRG Serum or plasma creatinine measurement w ith calculation of estimated glomerular filtration rate > NRG Serum or plasma glucose measurement (mass/volume) 90 mg/dL 70-105 Serum or plasma calcium measurement (mass/volume) 9.1 mg/dL 8.5-10.1 PROBNP FS - 03/08/19 06:50 PROBNP FS 3477.0 pg/mL <75.0 Influenza virus A and B antigen detectio n - 03/08/19 07:10 FLU RESULT NEGATIVE FOR INFLUENZA A AND B ANTIGENS BY IA NRG Encounters ACCT No. Visit Date/Time Discharge Status Pt. Type Provider Facility Loc./Unit Complaint [id number] 08/26/2018 17:45:00 08/26/2018 23:59: 59 CLS Outpatient ISAIAS CASILLAS [facility] [id number] 08/26/2018 17:45:00 Document Registration [id number] 07/31/2018 17:45:00 Document Registration [id number] 07/01/2018 17:45:00 Document Registration [id number] 06/03/2018 17:45:00 Document Registration [id number] 05/27/2018 16:15:00 Document Registration [id number] 05/29/2019 13:10:00 23:59:59 CLS Outpatient NICA STONE MD [facility] RAD FS SEVERE HEADACHE [id number] 03/08/2019 06:44:00 09:20:00 DIS Emergency DIAZ KEN TOLLIVERVOR L [facility] ER FS RESP ISSUES [id number] 01/07/2019 02:30:00 05:00:00 DIS Emergency KENDALL JEBCHANTAL B [facility] ER FS FACIAL SWELLING, RAPID HEART RATE [id number] 01/05/2019 14:54:00 23:59:59 CLS Outpatient NICA STONE MD [facility] LAB FS R31.9 [id number] 12/11/2018 14:15:00 23:59:59 CLS Outpatient BRUCE MORENO [facility] RAD FS M25.512 M25.511 [id number] 09/01/2018 15:22:00 23:59:59 CLS Outpatient NICA STONE MD [facility] LAB FS DYSURIA [id number] 05/20/2018 17:46:00 23:59:59 CLS Outpatient NICA STONE MD [facility] MNL
[2019-08-23] MEDS ORDERED: FUROSEMIDE 40 MG/4 ML INJ (LASIX) IVP ONE (08:15)
--- NOTE | 2019-08-23 08:25 | ED General ---
General Chief Complaint: Respiratory Problems Stated Complaint: SOA Source of Information: Patient History of Present Illness Date Seen by Provider: Aug 23, 2019 Time Seen by Provider: 08:15 Initial Comments This patient is a 84-year-old female presents to the emergency department with a long history of congestive heart failure reportedly comes in with complaint of shortness of breath. EMS reported crackles and gave the patient 40 mg of Lasix IV. Patient does have a history of hypertension his blood pressures greater than 200 systolic at this time. Patient has not received her home medications today. Patient denies that she has any shortness of breath. States she just tired. We'll do medical evaluation treatment is needed. Timing/Duration: 1-3 Hours Severity: Moderate Associated Systoms: No Denies Symptoms, No Chest Pain, No Cough, No Diaphoresis, No Fever/Chills, No Headaches, No Loss of Appetite, No Malaise, No Nausea/Vomiting, No Rash, No Seizure, No Shortness of Air, No Syncope, No Weakness, No Other Allergies and Home Medications Allergies Coded Allergies: hydrochlorothiazide (Verified Allergy, Unknown, 01/07/19) ibuprofen (Verified Allergy, Unknown, 01/07/19) Patient Home Medication List Home Medication List Reviewed: Yes Review of Systems Review of Systems Constitutional: No no symptoms reported; see HPI; No chills, No diaphoresis, No dizziness, No fever, No malaise; weakness; No weight gain, No weight loss, No other EENTM: No see HPI, No no symptoms reported, No ear discharge, No hearing loss, No ear pain, No blurred vision, No double vision, No eye pain, No tearing, No vision loss, No dental problems, No hoarseness, No mouth pain, No mouth swelling, No epistaxis, No nose congestion, No nose pain, No throat pain, No throat swelling, No other Respiratory: No no symptoms reported; see HPI; No cough; dyspnea on exertion; No hemoptysis, No orthopnea, No phlegm, No short of breath, No stridor, No wheezing, No other Cardiovascular: No no symptoms reported, No see HPI, No chest pain, No edema, No Hx of Intervention, No palpitations, No syncope, No vascular heart diseas, No other Gastrointestinal: No RUQ, No LUQ, No RLQ, No LLQ, No no symptoms reported, No see HPI, No abdominal pain, No constipation, No diarrhea, No dysphagia, No hematemesis, No heartburn, No jaundice, No loss of appetite, No melena, No nausea, No vomiting, No other Musculoskeletal: No no symptoms reported, No see HPI, No back pain, No gout, No joint pain, No joint swelling, No muscle pain, No muscle stiffness, No muscle cramps, No muscle twitching, No muscle weakness, No neck pain, No other Skin: No no symptoms reported, No see HPI, No change in color, No change in hair/nails, No dryness, No hx of skin cancer, No lesions, No lumps, No pruritus, No rash, No other All Other Systems Reviewed Negative Unless Noted: Yes Past Pglidnb-Lgbtyy-Tkvomt Hx Patient Social History 2nd Hand Smoke Exposure: No Past Medical History Respiratory: No Cardiac: Yes (CHF) Atrial Fibrillation, Hypertension, Irregular Heartbeat Neurological: Yes Parkinson's Disease Genitourinary: Yes (Overactive Bladder) Gastrointestinal: Yes Gastroesophageal Reflux, Gastrointestinal Bleed Musculoskeletal: Yes Arthritis Endocrine: Yes Hypothyroidsim HEENT: No Cancer: No Psychosocial: Yes Anxiety, Depression Integumentary: No Blood Disorders: Yes (Anemia) Physical Exam Vital Signs Vital Signs - First Documented 08/23/19 08:04 Temp 36.4 Pulse 73 Resp 20 B/P (MAP) 195/119 (144) Pulse Ox 98 O2 Delivery Nasal Cannula O2 Flow Rate 2.00 Capillary Refill : Height, Weight, BMI Height: '" Weight: lbs. oz. kg; 23.00 BMI Method: General Appearance: No Apparent Distress, WD/WN HEENT: PERRL/EOMI, TMs Normal, Normal ENT Inspection, Pharynx Normal Neck: Full Range of Motion, Normal Inspection, Non Tender, Supple Respiratory: Chest Non Tender, Lungs Clear, Normal Breath Sounds, No Accessory Muscle Use, No Respiratory Distress Cardiovascular: Regular Rate, Rhythm, No Edema, No Gallop, No JVD, No Murmur, Normal Peripheral Pulses Gastrointestinal: Normal Bowel Sounds, No Organomegaly, No Pulsatile Mass, Non Tender, Soft Extremity: Normal Capillary Refill, Normal Inspection, Normal Range of Motion, Non Tender, No Calf Tenderness Neurologic/Psychiatric: Alert, Oriented x3, No Motor/Sensory Deficits, Normal Mood/Affect Progress/Results/Core Measures Suspected Sepsis SIRS Temperature: Pulse: Respiratory Rate: Laboratory Tests 08/23/19 08:10: White Blood Count 9.3 Blood Pressure / Mean: Laboratory Tests 08/23/19 08:10: Creatinine 0.71, Platelet Count 329, Total Bilirubin 0.5 Results/Orders Lab Results Laboratory Tests Test 08/23/19 08:10 Range/Units White Blood Count 9.3 4.3-11.0 10^3/uL Red Blood Count 4.13 L 4.35-5.85 10^6/uL Hemoglobin 13.2 11.5-16.0 G/DL Hematocrit 38 35-52 % Mean Corpuscular Volume 93 80-99 FL Mean Corpuscular Hemoglobin 32 25-34 PG Mean Corpuscular Hemoglobin Concent 35 32-36 G/DL Red Cell Distribution Width 13.7 10.0-14.5 % Platelet Count 329 130-400 10^3/uL Mean Platelet Volume 9.1 7.4-10.4 FL Neutrophils (%) (Auto) 53 42-75 % Lymphocytes (%) (Auto) 30 12-44 % Monocytes (%) (Auto) 10 0-12 % Eosinophils (%) (Auto) 5 0-10 % Basophils (%) (Auto) 1 0-10 % Neutrophils # (Auto) 5.0 1.8-7.8 X 10^3 Lymphocytes # (Auto) 2.8 1.0-4.0 X 10^3 Monocytes # (Auto) 0.9 0.0-1.0 X 10^3 Eosinophils # (Auto) 0.5 H 0.0-0.3 10^3/uL Basophils # (Auto) 0.1 0.0-0.1 10^3/uL Sodium Level 132 L 135-145 MMOL/L Potassium Level 4.5 3.6-5.0 MMOL/L Chloride Level 92 L 98-107 MMOL/L Carbon Dioxide Level 24 21-32 MMOL/L Anion Gap 16 H 5-14 MMOL/L Blood Urea Nitrogen 10 7-18 MG/DL Creatinine 0.71 0.60-1.30 MG/DL Estimat Glomerular Filtration Rate > 60 BUN/Creatinine Ratio 14 Glucose Level 89 70-105 MG/DL Calcium Level 9.1 8.5-10.1 MG/DL Corrected Calcium 9.1 8.5-10.1 MG/DL Total Bilirubin 0.5 0.1-1.0 MG/DL Aspartate Amino Transf (AST/SGOT) 30 5-34 U/L Alanine Aminotransferase (ALT/SGPT) 10 0-55 U/L Alkaline Phosphatase 156 H 40-136 U/L Troponin I < 0.30 <0.30 NG/ML Pro-B-Type Natriuretic Peptide 3209.0 H <75.0 PG/ML Total Protein 6.3 L 6.4-8.2 GM/DL Albumin 4.0 3.2-4.5 GM/DL My Orders Orders - EDGARDO REMY MD Furosemide Injection (Lasix Injection) (08/23/19 08:15) Ed Iv/Invasive Line Start (08/23/19 08:21) Cbc With Automated Diff (08/23/19 08:21) Comprehensive Metabolic Panel (08/23/19 08:21) Troponin I Fs (08/23/19 08:21) Probnp Fs (08/23/19 08:21) Chest 1 View Ap/Pa Only (08/23/19 08:21) Ekg Tracing (08/23/19 08:21) Labetalol Injection (Normodyne Injection (08/23/19 08:30) Medications Given in ED Current Medications Medications Dose Ordered Sig/Willie Route Start Time Stop Time Status Last Admin Dose Admin Furosemide 40 mg ONCE ONCE IVP 08/23/19 08:15 08/23/19 08:16 DC 08/23/19 08:36 40 MG Labetalol HCl 20 mg ONCE ONCE IV 08/23/19 08:30 08/23/19 08:31 DC 08/23/19 08:36 20 MG Vital Signs/I&O 08/23/19 08:04 Temp 36.4 Pulse 73 Resp 20 B/P (MAP) 195/119 (144) Pulse Ox 98 O2 Delivery Nasal Cannula O2 Flow Rate 2.00 Capillary Refill : Progress Note : Time: 09:15 Progress Note Negative evaluation in the emergency department of the hypertension. Patient does have a history of A. fib and chronic CHF takes medications at home for the same. Patient's chest x-ray is clear and no signs of acute congestive heart failure or acute pulmonary edema. Patient states she has no complaints of shortness of breath on arrival has no complaints at this time. Patient did have an elevated blood pressure of over 200 systolic. But medical [place] reported the patient did not have any of her home medications today. Patient was treated with labetalol in the emergency department and blood pressure at this time is 148/96 heart rate 64. Patient has no complaints and is requesting to be discharged back to medical [place]. Patient be discharged back per her request we'll continue with all her home medications. ECG Initial ECG Impression Date: Aug 23, 2019 Initial ECG Impression Time: 08:33 Initial ECG Rate: 71 Initial ECG Rhythm: A Fib/Flutter Initial ECG Impression: Atrial Fibrillation Comment Atrial fibrillation with left axis deviation heart rate 71. Diagnostic Imaging Diagonstic Imaging: Xray Plain Films/CT/US/NM/MRI: chest Comments No acute findings on chest x-ray Departure Impression Primary Impression: Hypertension Additional Impressions: Chronic congestive heart failure Chronic atrial fibrillation Disposition: SNF Condition: Stable Departure-Patient Inst. Decision time for Depature: 09:17 Referrals: NICA STONE MD (PCP/Family) Primary Care Physician Patient Instructions: Heart Failure, Adult (DC), High Blood Pressure (DC) Add. Discharge Instructions: Chronic conditions are stable. Continue with all home medications. Follow up with PCP in 2-3 days. All discharge instructions reviewed with patient and/or family. Voiced understanding. EDGARDO REMY MD Aug 23, 2019 08:25
[2019-08-23 08:28] LABS: HEMATOCRIT 38 % (35-52); HEMOGLOBIN 13.2 G/DL (11.5-16.0); MEAN CORPUSCULAR HEMOGLOBIN 32 PG (25-34); MEAN CORPUSCULAR HGB CONC 35 G/DL (32-36); MEAN CORPUSCULAR VOLUME 93 FL (80-99); MEAN PLATELET VOLUME 9.1 FL (7.4-10.4); PLATELET COUNT 329 10^3/uL (130-400); RED CELL DISTRIBUTION WIDTH 13.7 % (10.0-14.5); WHITE BLOOD COUNT 9.3 10^3/uL (4.3-11.0)
[2019-08-23 08:29] LABS: BASOPHILS % (AUTO) 1 % (0-10); EOSINOPHILS % (AUTO) 5 % (0-10); LYMPHOCYTES % (AUTO) 30 % (12-44); MONOCYTES % (AUTO) 10 % (0-12); NEUTROPHILS % (AUTO) 53 % (42-75)
[2019-08-23 08:30] LABS: BASOPHILS # (AUTO) 0.1 10^3/uL (0.0-0.1); EOSINOPHILS # (AUTO) 0.5 10^3/uL (0.0-0.3); LYMPHOCYTES # (AUTO) 2.8 X 10^3 (1.0-4.0); MONOCYTES # (AUTO) 0.9 X 10^3 (0.0-1.0)
[2019-08-23] MEDS ORDERED: LABETALOL HCL 20 MG/4 ML VIAL IV ONE (08:30)
--- NOTE | 2019-08-23 08:50 | NUR ---
Patient changed of incontinence of urine in depends, pericare given. 2 staff members required to turn patient to perform task.
--- NOTE | 2019-08-23 08:59 | Diagnostic Imaging Report ---
EXAMINATION: Chest radiograph, portable AP view. DATE: 08/23/2019 8:46 AM hours. INDICATION: 84-year-old female, shortness of breath. COMPARISON: Chest radiograph March 08, 2019. FINDINGS: Heart size and mediastinal contours are unchanged. There are aortic calcifications. There is no identified pneumothorax. There is no large pleural effusion. There is no identified focal airspace consolidation. The right humeral head is abnormally aligned relative to the glenoid. There is a chronic appearing deformity of the right proximal humerus. IMPRESSION: 1. No identified interval acute cardiopulmonary abnormality. Dictated by: Dictated on workstation # [id number]
[2019-08-23 09:04] LABS: CARBON DIOXIDE 24 MMOL/L (21-32); CHLORIDE 92 MMOL/L (98-107); POTASSIUM 4.5 MMOL/L (3.6-5.0); SODIUM 132 MMOL/L (135-145)
[2019-08-23 09:05] LABS: ALANINE AMINOTRANSFERASE 10 U/L (0-55); ALKALINE PHOSPHATASE 156 U/L (40-136); BILIRUBIN,TOTAL 0.5 MG/DL (0.1-1.0); BUN/CREATININE RATIO 14; CALCIUM 9.1 MG/DL (8.5-10.1); CREATININE SERUM 0.71 MG/DL (0.60-1.30); GFR ESTIMATED > 60; GLUCOSE 89 MG/DL (70-105); TOTAL PROTEIN 6.3 GM/DL (6.4-8.2)
[2019-08-23 09:40] VITALS: BP 148/96
== END 2019-08-23 09:40 ==
LOC: EDUNIT# 08:02 → ER FS 08:02
DX: I11.0 Hypertensive heart disease with heart failure (principal); I50.9 Heart failure, unspecified; I48.20 Chronic atrial fibrillation, unspecified; Z88.8 Allergy status to other drugs, medicaments and biological substances; Z88.6 Allergy status to analgesic agent
CPT/HCPCS: 36415; 71045; 80053; 83880; 84484; 85025; 93005

== ENCOUNTER → 2020-01-11 | Outpatient (CLI) | payer MEDICARE, MEDICAID ==
[2020-01-11 20:53] LABS: BUN/CREATININE RATIO 19; CALCIUM 9.2 MG/DL (8.5-10.1); CARBON DIOXIDE 26 MMOL/L (21-32); CHLORIDE 92 MMOL/L (98-107); CREATININE SERUM 0.69 MG/DL (0.60-1.30); GFR ESTIMATED > 60; GLUCOSE 85 MG/DL (70-105); POTASSIUM 4.4 MMOL/L (3.6-5.0); SODIUM 133 MMOL/L (135-145)
== END ==
LOC: LAB FS 15:12
PROVIDERS: ATTEND Pediatrics
DX: I50.33 Acute on chronic diastolic (congestive) heart failure (principal)
CPT/HCPCS: 36415; 80048; 83880

== ENCOUNTER → 2020-02-12 | Outpatient (CLI) | payer MEDICARE, MEDICAID ==
[2020-02-12 09:20] LABS: BUN/CREATININE RATIO 24; CALCIUM 8.7 MG/DL (8.5-10.1); CARBON DIOXIDE 26 MMOL/L (21-32); CHLORIDE 95 MMOL/L (98-107); GFR ESTIMATED > 60; GLUCOSE 86 MG/DL (70-105); POTASSIUM 4.5 MMOL/L (3.6-5.0); SODIUM 131 MMOL/L (135-145)
== END ==
LOC: LAB FS 08:24
PROVIDERS: ATTEND Pediatrics
DX: I11.9 Hypertensive heart disease without heart failure (principal)
CPT/HCPCS: 36415; 80048

== ENCOUNTER → 2020-03-13 | Outpatient (CLI) | payer MEDICARE, MEDICAID ==
[2020-03-13 13:05] LABS: CLARITY,URINE CLOUDY; COLOR,URINE YELLOW; PH,URINE 7.5 (5-9); PROTEIN,URINE 1+ (NEGATIVE)
[2020-03-13 13:06] LABS: BACTERIA,URINE LARGE /HPF; BILIRUBIN,URINE NEGATIVE (NEGATIVE); GLUCOSE, URINE (UA) NEGATIVE (NEGATIVE); KETONES,URINE NEGATIVE (NEGATIVE); LEUKOCYTE ESTERASE ,URINE 3+ (NEGATIVE); NITRITE,URINE NEGATIVE (NEGATIVE); RBC,URINE 25-50 /HPF; WBC,URINE TNTC /HPF
== END ==
LOC: LAB FS 09:38
PROVIDERS: ATTEND Pediatrics
DX: Z01.89 Encounter for other specified special examinations (principal)
CPT/HCPCS: 81000; 87077; 87088

== ENCOUNTER → 2020-08-16 | Outpatient (CLI) | payer MEDICARE, MEDICAID ==
[2020-08-16 13:24] LABS: BUN/CREATININE RATIO 42; CALCIUM 8.6 MG/DL (8.5-10.1); CARBON DIOXIDE 23 MMOL/L (21-32); CHLORIDE 94 MMOL/L (98-107); CREATININE SERUM 0.45 MG/DL (0.60-1.30); GFR ESTIMATED > 60; GLUCOSE 103 MG/DL (70-105); POTASSIUM 4.4 MMOL/L (3.6-5.0); SODIUM 131 MMOL/L (135-145)
[2020-08-16 13:25] LABS: ALANINE AMINOTRANSFERASE 8 U/L (0-55); ALBUMIN 3.7 GM/DL (3.2-4.5); ALKALINE PHOSPHATASE 144 U/L (40-136); BILIRUBIN,TOTAL 0.4 MG/DL (0.1-1.0); TOTAL PROTEIN 5.7 GM/DL (6.4-8.2)
== END ==
LOC: LAB FS 12:18
PROVIDERS: ATTEND Nurse Practitioner
DX: E63.9 Nutritional deficiency, unspecified (principal); D64.9 Anemia, unspecified
CPT/HCPCS: 36415; 80053; 82607

== ENCOUNTER 2020-09-05 14:44 | Emergency (ER) | payer MEDICARE, MEDICAID ==
[2020-09-05 15:08] LABS: BASOPHILS % (AUTO) 1 % (0-10); EOSINOPHILS % (AUTO) 2 % (0-10); HEMATOCRIT 34 % (35-52); HEMOGLOBIN 11.3 G/DL (11.5-16.0); LYMPHOCYTES % (AUTO) 16 % (12-44); MEAN CORPUSCULAR HEMOGLOBIN 32 PG (25-34); MEAN CORPUSCULAR HGB CONC 33 G/DL (32-36); MEAN CORPUSCULAR VOLUME 96 FL (80-99); MEAN PLATELET VOLUME 9.1 FL (7.4-10.4); MONOCYTES % (AUTO) 11 % (0-12); NEUTROPHILS % (AUTO) 69 % (42-75); PLATELET COUNT 290 10^3/uL (130-400); WHITE BLOOD COUNT 8.5 10^3/uL (4.3-11.0)
[2020-09-05 15:09] LABS: BASOPHILS # (AUTO) 0.1 10^3/uL (0.0-0.1); EOSINOPHILS # (AUTO) 0.2 10^3/uL (0.0-0.3); LYMPHOCYTES # (AUTO) 1.4 X 10^3 (1.0-4.0); MONOCYTES # (AUTO) 0.9 X 10^3 (0.0-1.0); NEUTROPHILS # (AUTO) 5.9 X 10^3 (1.8-7.8)
--- NOTE | 2020-09-05 15:16 | ED Chest Pain ---
General Chief Complaint: Chest Pain Stated Complaint: CHEST PAIN Source: patient, family, halfway records History of Present Illness Date Seen by Provider: Sep 05, 2020 Time Seen by Provider: 14:45 Initial Comments 85-year-old female presenting from [facility] halfway. Her daughter accompanies her and helps provide history. The halfway had also called in a report on patient. She was having complaints around 10 AM this morning of a tight band around her lower chest and belly. She had refused transport to the ER to be evaluated. Her primary provider nurse practitioner Deana HARVEY had ordered an additional dose of Lasix be given. Despite being given this she was still complaining of a tight band this afternoon and so she was finally agreeable to come to the emergency department. By the time she arrived in the emergency department her symptoms have resolved. She has had a 4 pound weight gain in the last 24 hours and an 8 pound weight gain over the last 2 weeks. She has had no fever, chills, increasing shortness of breath, nausea, vomiting, worsening swelling in her legs. Location: epigastric (tight band sensation) Activities at Onset: none Prior CP/Workup: angina, cardiac cath (prior stents placed), echocardiography, heart attack Modifying Factors: improves with other (extra lasix has seemed to help by the time she arrived in ED) ASA po CARPENTER PACKING: Yes (takes chronically) NTG SL CARPENTER PACKING: No Associated Symptoms: No back pain, No diaphoresis, No dizziness; edema (chronic and mild), fatigue; No fever/chills, No headache, No heartburn, No nausea/vomiting, No rash; shortness of breath (chronic and no worse than usual); No swelling/lump in chest, No syncope; weakness (generalized) Allergies and Home Medications Allergies Coded Allergies: hydrochlorothiazide (Verified Allergy, Unknown, 01/07/19) ibuprofen (Verified Allergy, Unknown, 01/07/19) Patient Home Medication List Home Medication List Reviewed: Yes Review of Systems Review of Systems Constitutional: No chills, No diaphoresis, No fever EENTM: No Symptoms Reported Respiratory: See HPI Cardiovascular: See HPI Gastrointestinal: See HPI Genitourinary: No Symptoms Reported Musculoskeletal: no symptoms reported Skin: no symptoms reported Psychiatric/Neurological: Pre-Existing Deficit (dementia) Past Dvbduht-Looimy-Dhkkfr Hx Past Med/Social Hx: Reviewed Nursing Past Med/Soc Hx Patient Social History 2nd Hand Smoke Exposure: No Recent Hopitalizations: No Seasonal Allergies Seasonal Allergies: No Past Medical History Surgeries: Yes (Right Total Hip Replacement) Orthopedic Respiratory: No Cardiac: Yes (CHF) Atrial Fibrillation, Hypertension, Irregular Heartbeat Neurological: Yes Parkinson's Disease Genitourinary: Yes (Overactive Bladder) Gastrointestinal: Yes Gastroesophageal Reflux, Gastrointestinal Bleed Musculoskeletal: Yes Arthritis Endocrine: Yes Hypothyroidsim HEENT: No Cancer: No Psychosocial: Yes Anxiety, Depression Integumentary: No Blood Disorders: Yes (Anemia) Physical Exam Vital Signs Vital Signs - First Documented Capillary Refill : Less Than 3 Seconds Height, Weight, BMI Height: '" Weight: lbs. oz. kg; 23.00 BMI Method: General Appearance: No Apparent Distress, Chronically ill Neck: Non Tender Respiratory: Chest Non Tender, Lungs Clear, Normal Breath Sounds, No Accessory Muscle Use, No Respiratory Distress Cardiovascular: Normal Peripheral Pulses, Irregularly Irregular Gastrointestinal: No Pulsatile Mass, Non Tender, Soft Rectal: Deferred Extremity: Normal Capillary Refill, Pedal Edema (1+ BLE to knees), Other (pain in shoulders with chronic conditions with rotator cuff and fractures) Neurologic/Psychiatric: Alert Skin: Normal Color, Warm/Dry Images 1 - describes a band around her epigastric and lower chest but states it is not there now that she is in the ED Progress/Results/Core Measures Results/Orders Lab Results Laboratory Tests Test 09/05/20 15:00 Range/Units White Blood Count 8.5 4.3-11.0 10^3/uL Red Blood Count 3.52 L 4.35-5.85 10^6/uL Hemoglobin 11.3 L 11.5-16.0 G/DL Hematocrit 34 L 35-52 % Mean Corpuscular Volume 96 80-99 FL Mean Corpuscular Hemoglobin 32 25-34 PG Mean Corpuscular Hemoglobin Concent 33 32-36 G/DL Red Cell Distribution Width 15.6 H 10.0-14.5 % Platelet Count 290 130-400 10^3/uL Mean Platelet Volume 9.1 7.4-10.4 FL Immature Granulocyte % (Auto) 2 % Neutrophils (%) (Auto) 69 42-75 % Lymphocytes (%) (Auto) 16 12-44 % Monocytes (%) (Auto) 11 0-12 % Eosinophils (%) (Auto) 2 0-10 % Basophils (%) (Auto) 1 0-10 % Neutrophils # (Auto) 5.9 1.8-7.8 X 10^3 Lymphocytes # (Auto) 1.4 1.0-4.0 X 10^3 Monocytes # (Auto) 0.9 0.0-1.0 X 10^3 Eosinophils # (Auto) 0.2 0.0-0.3 10^3/uL Basophils # (Auto) 0.1 0.0-0.1 10^3/uL Immature Granulocyte # (Auto) 0.1 0.0-0.1 10^3/uL Prothrombin Time 15.7 H 12.2-14.7 SEC INR Comment 1.2 0.8-1.4 Activated Partial Thromboplast Time 37 H 24-35 SEC Sodium Level 130 L 135-145 MMOL/L Potassium Level 4.1 3.6-5.0 MMOL/L Chloride Level 96 L 98-107 MMOL/L Carbon Dioxide Level 25 21-32 MMOL/L Anion Gap 9 5-14 MMOL/L Blood Urea Nitrogen 20 H 7-18 MG/DL Creatinine 0.50 L 0.60-1.30 MG/DL Estimat Glomerular Filtration Rate > 60 BUN/Creatinine Ratio 40 Glucose Level 116 H 70-105 MG/DL Calcium Level 8.5 8.5-10.1 MG/DL Corrected Calcium 8.7 8.5-10.1 MG/DL Magnesium Level 1.8 1.6-2.4 MG/DL Total Bilirubin 0.3 0.1-1.0 MG/DL Aspartate Amino Transf (AST/SGOT) 27 5-34 U/L Alanine Aminotransferase (ALT/SGPT) 5 0-55 U/L Alkaline Phosphatase 142 H 40-136 U/L Troponin I < 0.30 <0.30 NG/ML Pro-B-Type Natriuretic Peptide 4932.0 H <75.0 PG/ML Total Protein 6.0 L 6.4-8.2 GM/DL Albumin 3.7 3.2-4.5 GM/DL Lipase 28 8-78 U/L My Orders Orders - TRISTON CROWDER MD Cbc With Automated Diff (09/05/20 14:48) Magnesium (09/05/20 14:48) Chest 1 View Ap/Pa Only (09/05/20 14:48) Ekg Tracing (09/05/20 14:48) Comprehensive Metabolic Panel (09/05/20 14:48) Protime With Inr (09/05/20 14:48) Partial Thromboplastin Time (09/05/20 14:48) O2 (09/05/20 14:48) Monitor-Rhythm Ecg Trace Only (09/05/20 14:48) Ed Iv/Invasive Line Start (09/05/20 14:48) Lipase (09/05/20 14:48) Troponin I Fs (09/05/20 14:48) Probnp Fs (09/05/20 14:48) Vital Signs/I&O 09/05/20 09/05/20 09/05/20 14:50 14:50 17:36 Temp 36.5 36.5 Pulse 57 64 Resp 20 20 B/P (MAP) 138/79 (98) 179/93 (98) Pulse Ox 94 93 O2 Delivery Room Air Room Air Room Air Progress Progress Note #1: Progress Note check labs, ECG, CXR, cardiac enzymes. Differential diagnosis includes CHF, myocardial infarction, coronary syndrome, pneumonia, gastritis, musculoskeletal pain Progress Note #2: Progress Note Electrocardiogram shows chronic atrial fibrillation without acute changes compared to her prior tracings. Her chest x-ray was clear of effusion, infiltrate, increased pulmonary vascular congestion. Her labs appeared stable w ithout acute elevation of her troponin and her BNP was similar to prior tests. She was diuresing well [facility] and had no further complaint of tight band around chest/abdomen. Reassured pt and family and advised that will have her take lasix daily as SHELIA Harvey wanted and then see her Saturday for recheck. If further concerns/problems then check with Cardiology from [place] where she follows with them, but SHELIA Harvey is managing most of her cardiology and CHF care recently. Initial ECG Impression Date: Sep 05, 2020 Initial ECG Impression Time: 14:57 Initial ECG Rate: 57 Initial ECG Rhythm: A Fib/Flutter Initial ECG Comparisson: Unchanged Comment Atrial fibrillation with a heart rate of 57 bpm. Left ventricular hypertrophy. QT interval 435 ms with a QTc interval [address] elevation. Appears similar to prior tracings in the system. Diagnostic Imaging Diagonstic Imaging: Xray Plain Films/CT/US/NM/MRI: chest Comments [facility]. [place], [place] NAME: CAITLIN SUBRAMANIAN I [facility] REC#: [id number] PT STATUS: REG ER : 1935 PHYSICIAN: TRISTON CROWDER MD ADMIT DATE: 09/05/20/ER FS Draft Date of Exam:09/05/20 CHEST 1 VIEW AP/PA ONLY INDICATION: Chest pain. COMPARISON: 08/23/2019 FINDINGS: Single frontal view of the chest demonstrates stable heart size and pulmonary vascularity. The lungs are well aerated and clear. No large pleural effusion or pneumothorax is seen. The visualized osseous structures show no acute abnormalities. IMPRESSION: 1. No acute cardiopulmonary process. Dictated on workstation # [id number] Dict: 09/05/20 1523 Trans: 09/05/20 1524 [facility] [id number] Interpreted by: LIN FLOREZ MD Electronically signed by: Reviewed: Reviewed by Me Departure Impression Primary Impression: Chest tightness Additional Impressions: Atrial fibrillation, chronic Congestive heart failure (CHF) Qualified Codes: I50.9 - Heart failure, unspecified Disposition: HOME, SELF-CARE Condition: Stable Departure-Patient Inst. Decision time for Depature: 17:11 Referrals: DEANA HARVEY (PCP) Primary Care Physician [facility] (Family) Primary Care Physician Patient Instructions: Heart Failure ED, Chest Pain, Adult ED Add. Discharge Instructions: Continue on your regular medicines and take the diuretic as directed by Deana Harvey on a daily basis this week with a recheck with her on Saturday. All discharge instructions reviewed with patient and/or family. Voiced understanding. TRISTON CROWDER MD Sep 05, 2020 15:16
[2020-09-05 15:23] LABS: INR 1.2 (0.8-1.4); PROTHROMBIN TIME PATIENT 15.7 SEC (12.2-14.7)
--- NOTE | 2020-09-05 15:24 | Diagnostic Imaging Report ---
INDICATION: Chest pain. COMPARISON: 08/23/2019 FINDINGS: Single frontal view of the chest demonstrates stable heart size and pulmonary vascularity. The lungs are well aerated and clear. No large pleural effusion or pneumothorax is seen. The visualized osseous structures show no acute abnormalities. IMPRESSION: 1. No acute cardiopulmonary process. Dictated by: Dictated on workstation # [id number]
[2020-09-05 15:37] LABS: CARBON DIOXIDE 25 MMOL/L (21-32); CHLORIDE 96 MMOL/L (98-107); POTASSIUM 4.1 MMOL/L (3.6-5.0); SODIUM 130 MMOL/L (135-145)
[2020-09-05 15:38] LABS: ALANINE AMINOTRANSFERASE 5 U/L (0-55); ALBUMIN 3.7 GM/DL (3.2-4.5); ALKALINE PHOSPHATASE 142 U/L (40-136); BILIRUBIN,TOTAL 0.3 MG/DL (0.1-1.0); BUN/CREATININE RATIO 40; CALCIUM 8.5 MG/DL (8.5-10.1); GFR ESTIMATED > 60; GLUCOSE 116 MG/DL (70-105); LIPASE 28 U/L (8-78); MAGNESIUM 1.8 MG/DL (1.6-2.4)
[2020-09-05 17:36] VITALS: BP 179/93
== END 2020-09-05 17:25 | disposition home or self-care (01) ==
LOC: EDUNIT# 14:44 → ER FS 14:46
DX: I48.91 Unspecified atrial fibrillation (principal); I11.0 Hypertensive heart disease with heart failure; I50.9 Heart failure, unspecified; G20 Parkinson's disease
CPT/HCPCS: 36415; 71045; 80053; 83690; 83735; 83880; 84484; 85025; 85610; 85730; 93005; 93041

== ENCOUNTER 2020-09-16 16:42 | Emergency (ER) | payer MEDICARE, MEDICAID ==
--- NOTE | 2020-09-16 16:50 | ED General ---
General Stated Complaint: A-FIB,AMS History of Present Illness Date Seen by Provider: Sep 16, 2020 Time Seen by Provider: 16:47 Initial Comments 85-year-old female sent in from [facility] for evaluation. Patient has a history of Parkinson's and confusional episodes. They report that she had a confusional episode and her blood pressure was elevated. Upon EMS arrival patient's blood pressure was back to normal and she seems to be at her baseline. [facility] reported she is doing much better with it but just wanted her "checked out" the episodes seem to be fairly short. Patient does not complain of any acute changes. No reports of fevers chills nausea or vomiting. Denies any shortness of breath, chest pain. Allergies and Home Medications Allergies Coded Allergies: hydrochlorothiazide (Verified Allergy, Unknown, 01/07/19) ibuprofen (Verified Allergy, Unknown, 01/07/19) Patient Home Medication List Home Medication List Reviewed: Yes Review of Systems Review of Systems Constitutional: No chills, No fever Respiratory: no symptoms reported Cardiovascular: no symptoms reported Gastrointestinal: no symptoms reported Genitourinary: no symptoms reported Skin: no symptoms reported Psychiatric/Neurological: See HPI Hematologic/Lymphatic: No Symptoms Reported Past Kznqmph-Uhgukn-Qtexad Hx Seasonal Allergies Seasonal Allergies: No Past Medical History Surgeries: Yes (Right Total Hip Replacement) Orthopedic Respiratory: No Cardiac: Yes (CHF) Atrial Fibrillation, Hypertension, Irregular Heartbeat Neurological: Yes Parkinson's Disease Genitourinary: Yes (Overactive Bladder) Gastrointestinal: Yes Gastroesophageal Reflux, Gastrointestinal Bleed Musculoskeletal: Yes Arthritis Endocrine: Yes Hypothyroidsim HEENT: No Cancer: No Psychosocial: Yes Anxiety, Depression Integumentary: No Blood Disorders: Yes (Anemia) Physical Exam Vital Signs Vital Signs - First Documented 09/16/20 16:58 Temp 36.3 Pulse 73 Resp 18 B/P (MAP) 145/96 (112) Pulse Ox 95 O2 Delivery Room Air Capillary Refill : Height, Weight, BMI Height: '" Weight: lbs. oz. kg; 23.00 BMI Method: General Appearance: Other (frail, chronically ill ) Neck: Non Tender, Supple Respiratory: Lungs Clear, Normal Breath Sounds Cardiovascular: Regular Rate, Rhythm, No Edema Gastrointestinal: Non Tender, Soft Extremity: Normal Capillary Refill Neurologic/Psychiatric: Alert, Other (answers questions appropiately ) Progress/Results/Core Measures Suspected Sepsis SIRS Temperature: Pulse: Respiratory Rate: Laboratory Tests 09/16/20 16:45: White Blood Count 8.3 Blood Pressure / Mean: Laboratory Tests 09/16/20 16:45: Creatinine 0.49L, Platelet Count 274, Total Bilirubin 0.3 Results/Orders Lab Results Laboratory Tests Test 09/16/20 16:45 09/16/20 16:55 Range/Units White Blood Count 8.3 4.3-11.0 10^3/uL Red Blood Count 3.51 L 4.35-5.85 10^6/uL Hemoglobin 11.1 L 11.5-16.0 G/DL Hematocrit 34 L 35-52 % Mean Corpuscular Volume 97 80-99 FL Mean Corpuscular Hemoglobin 32 25-34 PG Mean Corpuscular Hemoglobin Concent 33 32-36 G/DL Red Cell Distribution Width 15.5 H 10.0-14.5 % Platelet Count 274 130-400 10^3/uL Mean Platelet Volume 9.0 7.4-10.4 FL Neutrophils (%) (Auto) 70 42-75 % Lymphocytes (%) (Auto) 16 12-44 % Monocytes (%) (Auto) 11 0-12 % Eosinophils (%) (Auto) 2 0-10 % Basophils (%) (Auto) 0 0-10 % Neutrophils # (Auto) 5.9 1.8-7.8 X 10^3 Lymphocytes # (Auto) 1.3 1.0-4.0 X 10^3 Monocytes # (Auto) 0.9 0.0-1.0 X 10^3 Eosinophils # (Auto) 0.2 0.0-0.3 10^3/uL Basophils # (Auto) 0.0 0.0-0.1 10^3/uL Sodium Level 128 L 135-145 MMOL/L Potassium Level 4.5 3.6-5.0 MMOL/L Chloride Level 89 L 98-107 MMOL/L Carbon Dioxide Level 25 21-32 MMOL/L Anion Gap 14 5-14 MMOL/L Blood Urea Nitrogen 21 H 7-18 MG/DL Creatinine 0.49 L 0.60-1.30 MG/DL Estimat Glomerular Filtration Rate > 60 BUN/Creatinine Ratio 43 Glucose Level 114 H 70-105 MG/DL Calcium Level 8.6 8.5-10.1 MG/DL Corrected Calcium 8.5-10.1 MG/DL Total Bilirubin 0.3 0.1-1.0 MG/DL Aspartate Amino Transf (AST/SGOT) 22 5-34 U/L Alanine Aminotransferase (ALT/SGPT) < 5 0-55 U/L Alkaline Phosphatase 141 H 40-136 U/L Total Protein 6.0 L 6.4-8.2 GM/DL Albumin 3.8 3.2-4.5 GM/DL Urine Color YELLOW Urine Clarity SLIGHTLY CLOUDY Urine pH 7.5 5-9 Urine Specific [place] 1.010 L 1.016-1.022 Urine Protein NEGATIVE NEGATIVE Urine Glucose (UA) NEGATIVE NEGATIVE Urine Ketones NEGATIVE NEGATIVE Urine Nitrite NEGATIVE NEGATIVE Urine Bilirubin NEGATIVE NEGATIVE Urine Urobilinogen 0.2 < = 1.0 MG/DL Urine Leukocyte Esterase NEGATIVE NEGATIVE Urine RBC (Auto) NEGATIVE NEGATIVE Urine RBC NONE /HPF Urine WBC 0-2 /HPF Urine Crystals PRESENT H /LPF Urine Amorphous Sediment LARGE WESLEY PHOSPHATE H /LPF Urine Bacteria MODERATE H /HPF Urine Casts PRESENT /LPF Urine Hyaline Casts 2-5 H /LPF Urine Mucus NEGATIVE /LPF Urine Culture Indicated YES My Orders Orders - DIAZ,CRISTINO L DO Cbc With Automated Diff (09/16/20 16:50) Comprehensive Metabolic Panel (09/16/20 16:50) Ua Culture If Indicated (09/16/20 16:50) Urine Culture (09/16/20 16:55) Vital Signs/I&O 09/16/20 16:58 Temp 36.3 Pulse 73 Resp 18 B/P (MAP) 145/96 (112) Pulse Ox 95 O2 Delivery Room Air Capillary Refill : Progress Note : Progress Note Patient at her baseline mentation. Labs are near her normal baseline's. EKG shows known atrial fib with a heart rate 88 with no acute findings. Her son feels that she is near her normal mentation. Based on this I will discharge her home with minimal work-up she will be discharged back to [facility] in stable condition. ECG Initial ECG Impression Date: Sep 16, 2020 Initial ECG Impression Time: 16:48 Initial ECG Rate: 88 Initial ECG Rhythm: A Fib/Flutter Initial ECG Impression: Atrial Fibrillation Comment no acute findings Departure Impression Primary Impression: Episodic confusion Disposition: 01 HOME, SELF-CARE Condition: Stable Departure-Patient Inst. Referrals: ELIE MCKOY (PCP) Primary Care Physician [facility] (Family) Primary Care Physician Patient Instructions: Delirium (Confusion) Add. Discharge Instructions: Follow-up with your primary care provider next week for continuation of care and recheck of today's symptoms CRISTINO DIAZ DO Sep 16, 2020 16:50
[2020-09-16 16:54] LABS: HEMATOCRIT 34 % (35-52); HEMOGLOBIN 11.1 G/DL (11.5-16.0); LYMPHOCYTES % (AUTO) 16 % (12-44); MEAN CORPUSCULAR HEMOGLOBIN 32 PG (25-34); MEAN CORPUSCULAR HGB CONC 33 G/DL (32-36); MEAN CORPUSCULAR VOLUME 97 FL (80-99); MONOCYTES % (AUTO) 11 % (0-12); NEUTROPHILS % (AUTO) 70 % (42-75); PLATELET COUNT 274 10^3/uL (130-400); WHITE BLOOD COUNT 8.3 10^3/uL (4.3-11.0)
[2020-09-16 16:55] LABS: BASOPHILS % (AUTO) 0 % (0-10); EOSINOPHILS # (AUTO) 0.2 10^3/uL (0.0-0.3); EOSINOPHILS % (AUTO) 2 % (0-10); LYMPHOCYTES # (AUTO) 1.3 X 10^3 (1.0-4.0); MONOCYTES # (AUTO) 0.9 X 10^3 (0.0-1.0); NEUTROPHILS # (AUTO) 5.9 X 10^3 (1.8-7.8)
[2020-09-16 17:03] LABS: COLOR,URINE YELLOW
[2020-09-16 17:04] LABS: AMORPHOUS SEDIMENT,UR LARGE AMOR PHOSPHATE /LPF; BACTERIA,URINE MODERATE /HPF; BILIRUBIN,URINE NEGATIVE (NEGATIVE); CLARITY,URINE SLIGHTLY CLOUDY; GLUCOSE, URINE (UA) NEGATIVE (NEGATIVE); KETONES,URINE NEGATIVE (NEGATIVE); LEUKOCYTE ESTERASE ,URINE NEGATIVE (NEGATIVE); NITRITE,URINE NEGATIVE (NEGATIVE); PH,URINE 7.5 (5-9); PROTEIN,URINE NEGATIVE (NEGATIVE); WBC,URINE 0-2 /HPF
[2020-09-16 17:12] LABS: ALANINE AMINOTRANSFERASE < 5 U/L (0-55); ALBUMIN 3.8 GM/DL (3.2-4.5); ALKALINE PHOSPHATASE 141 U/L (40-136); BILIRUBIN,TOTAL 0.3 MG/DL (0.1-1.0); BUN/CREATININE RATIO 43; CALCIUM 8.6 MG/DL (8.5-10.1); CARBON DIOXIDE 25 MMOL/L (21-32); CHLORIDE 89 MMOL/L (98-107); CREATININE SERUM 0.49 MG/DL (0.60-1.30); GFR ESTIMATED > 60; GLUCOSE 114 MG/DL (70-105); POTASSIUM 4.5 MMOL/L (3.6-5.0); SODIUM 128 MMOL/L (135-145)
[2020-09-16 17:41] VITALS: BP 144/78
== END 2020-09-16 17:31 | disposition home or self-care (01) ==
LOC: EDUNIT# 16:42 → ER FS 16:43
DX: R41.0 Disorientation, unspecified (principal); I11.0 Hypertensive heart disease with heart failure; I50.9 Heart failure, unspecified; G20 Parkinson's disease
CPT/HCPCS: 36415; 80053; 81000; 85025; 87088; 93005

== ENCOUNTER 2020-10-02 10:49 | Emergency (ER) | payer MEDICARE, MEDICAID ==
[~2020-10-02] VITALS: Ht 150 cm; Wt 55.0 kg
--- NOTE | 2020-10-02 11:14 | ED General ---
General Chief Complaint: General Problems/Pain Stated Complaint: CONFUSION Source of Information: Patient, EMS, Family, Old Records History of Present Illness Date Seen by Provider: Oct 02, 2020 Time Seen by Provider: 10:49 Initial Comments 85-year-old female presenting from [facility] by EMS. She was reportedly found unresponsive with her jaw clenched. When EMS arrived she was answering questions but was having swaying movements. She does have parkinson's disease but had not exhibited those symptoms when in the ED previously. The daughter was concerned that maybe she had not gotten her medications on the correct time. According to the daughter she has had symptoms like this when the medicine gets too close together or not space correctly at the fpc. She did seem to be slower to answer questions but was able to answer questions and was oriented x 3. She denied having any recent falls or injury. She denied any fever, chills, shortness of breath, headache. The swelling in her legs seem to be stable compared to previous visits. Associated Systoms: No Chest Pain, No Cough, No Diaphoresis, No Fever/Chills, No Headaches, No Nausea/Vomiting, No Shortness of Air Allergies and Home Medications Allergies Coded Allergies: hydrochlorothiazide (Verified Allergy, Unknown, 01/07/19) ibuprofen (Verified Allergy, Unknown, 01/07/19) Patient Home Medication List Home Medication List Reviewed: Yes Review of Systems Review of Systems Constitutional: see HPI; No chills, No fever EENTM: no symptoms reported Respiratory: no symptoms reported Cardiovascular: no symptoms reported Gastrointestinal: no symptoms reported Genitourinary: no symptoms reported, incontinence (chronic) Musculoskeletal: no symptoms reported Skin: change in color (bruising on forehead) Psychiatric/Neurological: See HPI; Denies Headache Past Tsjtnyj-Nsofcw-Tdkfdb Hx Seasonal Allergies Seasonal Allergies: No Past Medical History Surgeries: Yes (Right Total Hip Replacement) Orthopedic Respiratory: No Cardiac: Yes (CHF) Atrial Fibrillation, Hypertension, Irregular Heartbeat Neurological: Yes Parkinson's Disease Genitourinary: Yes (Overactive Bladder) Gastrointestinal: Yes Gastroesophageal Reflux, Gastrointestinal Bleed Musculoskeletal: Yes Arthritis Endocrine: Yes Hypothyroidsim HEENT: No Cancer: No Psychosocial: Yes Anxiety, Depression Integumentary: No Blood Disorders: Yes (Anemia) Physical Exam Vital Signs Vital Signs - First Documented 10/02/20 10:50 Temp 36.3 Pulse 83 Resp 18 B/P (MAP) 159/102 (121) Pulse Ox 94 O2 Delivery Room Air Capillary Refill : Height, Weight, BMI Height: '" Weight: lbs. oz. kg; 23.00 BMI Method: General Appearance: Chronically ill, Other (having dyskinetic movements. answers questions but slow to respond) HEENT: PERRL/EOMI; No Moist Mucous Membranes (slightly dry mucous membranes) Respiratory: Chest Non Tender, No Accessory Muscle Use, No Respiratory Distress, Decreased Breath Sounds Cardiovascular: Regular Rate, Rhythm, Normal Peripheral Pulses Gastrointestinal: Normal Bowel Sounds, No Pulsatile Mass, Non Tender, Soft Rectal: Deferred Extremity: Normal Capillary Refill, Pedal Edema (1+ BLE) Neurologic/Psychiatric: Alert, Oriented x3 Skin: Warm/Dry Focused Exam Lactate Level 10/02/20 10:55: Lactic Acid Level 3.58*H 10/02/20 13:20: Lactic Acid Level 1.97 Lactic Acid Level Laboratory Tests Test 10/02/20 10:55 10/02/20 13:20 Lactic Acid Level 3.58 MMOL/L (0.50-2.00) *H 1.97 MMOL/L (0.50-2.00) Progress/Results/Core Measures Suspected Sepsis SIRS Temperature: Pulse: Respiratory Rate: Laboratory Tests 10/02/20 10:55: White Blood Count 9.9 Blood Pressure / Mean: 10/02/20 10:55: Lactic Acid Level 3.58*H 10/02/20 13:20: Lactic Acid Level 1.97 Laboratory Tests 10/02/20 10:55: Creatinine 0.58L, INR Comment 1.4, Platelet Count 284, Total Bilirubin 0.4 Results/Orders Lab Results Laboratory Tests Test 10/02/20 10:55 10/02/20 11:05 10/02/20 13:20 Range/Units White Blood Count 9.9 4.3-11.0 10^3/uL Red Blood Count 3.76 L 4.35-5.85 10^6/uL Hemoglobin 11.9 11.5-16.0 G/DL Hematocrit 36 35-52 % Mean Corpuscular Volume 95 80-99 FL Mean Corpuscular Hemoglobin 32 25-34 PG Mean Corpuscular Hemoglobin Concent 33 32-36 G/DL Red Cell Distribution Width 15.8 H 10.0-14.5 % Platelet Count 284 130-400 10^3/uL Mean Platelet Volume 9.5 7.4-10.4 FL Immature Granulocyte % (Auto) 2 % Neutrophils (%) (Auto) 65 42-75 % Lymphocytes (%) (Auto) 18 12-44 % Monocytes (%) (Auto) 11 0-12 % Eosinophils (%) (Auto) 3 0-10 % Basophils (%) (Auto) 1 0-10 % Neutrophils # (Auto) 6.4 1.8-7.8 X 10^3 Lymphocytes # (Auto) 1.8 1.0-4.0 X 10^3 Monocytes # (Auto) 1.1 H 0.0-1.0 X 10^3 Eosinophils # (Auto) 0.3 0.0-0.3 10^3/uL Basophils # (Auto) 0.1 0.0-0.1 10^3/uL Immature Granulocyte # (Auto) 0.2 H 0.0-0.1 10^3/uL Prothrombin Time 17.4 H 12.2-14.7 SEC INR Comment 1.4 0.8-1.4 Activated Partial Thromboplast Time 35 24-35 SEC Sodium Level 126 L 135-145 MMOL/L Potassium Level 4.7 3.6-5.0 MMOL/L Chloride Level 91 L 98-107 MMOL/L Carbon Dioxide Level 24 21-32 MMOL/L Anion Gap 11 5-14 MMOL/L Blood Urea Nitrogen 16 7-18 MG/DL Creatinine 0.58 L 0.60-1.30 MG/DL Estimat Glomerular Filtration Rate > 60 BUN/Creatinine Ratio 28 Glucose Level 177 H 70-105 MG/DL Lactic Acid Level 3.58 *H 1.97 0.50-2.00 MMOL/L Calcium Level 9.0 8.5-10.1 MG/DL Corrected Calcium 9.2 8.5-10.1 MG/DL Magnesium Level 1.7 1.6-2.4 MG/DL Total Bilirubin 0.4 0.1-1.0 MG/DL Aspartate Amino Transf (AST/SGOT) 50 H 5-34 U/L Alanine Aminotransferase (ALT/SGPT) 16 0-55 U/L Alkaline Phosphatase 166 H 40-136 U/L Total Protein 6.1 L 6.4-8.2 GM/DL Albumin 3.7 3.2-4.5 GM/DL Urine Color YELLOW Urine Clarity TURBID H Urine pH 7.0 5-9 Urine Specific [place] 1.015 L 1.016-1.022 Urine Protein 2+ H NEGATIVE Urine Glucose (UA) NEGATIVE NEGATIVE Urine Ketones NEGATIVE NEGATIVE Urine Nitrite NEGATIVE NEGATIVE Urine Bilirubin NEGATIVE NEGATIVE Urine Urobilinogen 0.2 < = 1.0 MG/DL Urine Leukocyte Esterase 3+ H NEGATIVE Urine RBC (Auto) 3+ H NEGATIVE Urine RBC 5-10 H /HPF Urine WBC TNTC H /HPF Urine Squamous Epithelial Cells NONE /HPF Urine Renal Epithelial Cells NONE /HPF Urine Crystals PRESENT H /LPF Urine Amorphous Sediment FEW WESLEY URATES H /LPF Urine Bacteria MODERATE H /HPF Urine Casts NONE /LPF Urine Mucus NEGATIVE /LPF Urine Culture Indicated YES My Orders Orders - TRISTON CROWDER MD Cbc With Automated Diff (10/02/20 11:01) Magnesium (10/02/20 11:01) Chest 1 View Ap/Pa Only (10/02/20 11:01) Comprehensive Metabolic Panel (10/02/20 11:01) Protime With Inr (10/02/20 11:01) Partial Thromboplastin Time (10/02/20 11:01) O2 (10/02/20 11:01) Monitor-Rhythm Ecg Trace Only (10/02/20 11:01) Ed Iv/Invasive Line Start (10/02/20 11:01) Blood Culture (10/02/20 11:01) Ua Culture If Indicated (10/02/20 11:01) Straight Cath For Spec.-Adult (10/02/20 11:01) Lactic Acid Analyzer (10/02/20 11:01) Ct Head Wo (10/02/20 11:03) Urine Culture (10/02/20 11:05) Ceftriaxone (Rocephin) (10/02/20 12:04) Ns (Ivpb) (Sodium Chloride 0.9%) (10/02/20 12:35) Vital Signs/I&O 10/02/20 10/02/20 10:50 15:01 Temp 36.3 36.1 Pulse 83 86 Resp 18 8 B/P (MAP) 159/102 (121) 155/82 Pulse Ox 94 95 O2 Delivery Room Air Room Air Capillary Refill : Progress Note #1: Progress Note Obtain labs including straight cath UA. CT scan of the head for her slow to respond answers as well as the increased dyskinetic movements. Progress Note #2: Progress Note CT head does not show any acute process. Chest x-ray shows chronic mild failure. Labs are stable without acute significant pneumonia on her CBC or chemistry. She has chronic hyponatremia with sodium at baseline of 126. Her lactic acid came back elevated at 3.58. Her urinalysis did demonstrate signs of infection with bacteria and white blood cells as well as 3+ leukocyte esterase. We will treat with Rocephin and a 250 mL bolus of fluid. Since she is a history of CHF did not want to overload her. Discussed with patient and family about treatment. Since she is a little dry as well as having the signs of sepsis will start with antibiotics and a small bolus however she could easily get overloaded on fluid due to her history of CHF. Recommend admission for antibiotics and fluid. Progress Note #3: Progress Note The family requested to go to [facility] however when I called there they were full and at capacity. They then requested [facility]. When [facility] was contacted they also reported that the were at capacity and did not have any beds available. Family then requested to go to [facility]. When contacting the [facility] access center vendor did have beds. The attending physician Dr. Beach called back at 1431 accepted the patient for transfer. Diagnostic Imaging Diagonstic Imaging: Xray Plain Films/CT/US/NM/MRI: chest Comments NAME: CAITLIN SUBRAMANIAN I [facility] REC#: [id number] PT STATUS: REG ER : 1935 PHYSICIAN: TRISTON CROWDER MD ADMIT DATE: 10/02/20/ER FS Signed Date of Exam:10/02/20 CHEST 1 VIEW AP/PA ONLY EXAMINATION: Chest 1 view HISTORY: Altered mental status. COMPARISON: 09/05/2020. FINDINGS: The lung volumes are normal. No focal consolidation is seen. Prominent interstitial markings are seen throughout the lungs. No large pleural effusion or pneumothorax is seen. The cardiomediastinal silhouette is stable. There is calcified aortic atherosclerotic plaque. No acute osseous abnormality is seen. Advanced degenerative changes are seen in the bilateral glenohumeral joints. IMPRESSION: 1. Prominent interstitial markings throughout the lungs, which may represent edema or infection. No focal consolidation. Dictated by: Dictated on workstation # [id number] Dict: 10/02/20 1155 Trans: 10/02/20 1159 [facility] [phone] Interpreted by: DANTE HERRON DO Electronically signed by: DANTE HERRON DO 10/02/20 1159 Diagonstic Imaging: CT Plain Films/CT/US/NM/MRI: head Comments [facility] [place] [place] [place] NAME: CAITLIN SUBRAMANIAN I [facility] REC#: [id number] PT STATUS: REG ER : 1935 PHYSICIAN: TRISTON CROWDER MD ADMIT DATE: 10/02/20/ER FS Signed Date of Exam:10/02/20 CT HEAD WO EXAMINATION: CT head without contrast. TECHNIQUE: Multiple contiguous axial images were obtained through the brain without the use of intravenous contrast. All CT scans use one or more of the following dose optimizing techniques: automated exposure control, MA and/or KvP adjustment based on patient size and exam type or iterative reconstruction. HISTORY: Altered mental status. Episode of unresponsiveness. COMPARISON: 05/29/2019. FINDINGS: No large acute territorial ischemia, mass, or hemorrhage. No midline shift or mass effect. Decreased attenuation is seen in the periventricular and subcortical white matter. The ventricles and cortical sulci are prominent. The basilar cisterns are patent and unremarkable. The orbits are normal. Paranasal sinuses are normal. Mastoid air cells are clear. No soft tissue abnormality is seen. No osseous lesions or fractures are seen. IMPRESSION: 1. No large acute territorial ischemia, mass, or hemorrhage. 2. Chronic microvascular disease. 3. Generalized parenchymal volume loss. 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 Beach from [facility] and will accept pt for UTI/Sepsis. Transfer Facility: [facility] Method of Transfer: EMS Departure-Patient Inst. Referrals: ELIE MCKOY (PCP) Primary Care Physician [facility] [place] Primary Care Physician TRISTON CROWDER MD Oct 02, 2020 11:14
--- NOTE | 2020-10-02 11:38 | Diagnostic Imaging Report ---
EXAMINATION: CT head without contrast. TECHNIQUE: Multiple contiguous axial images were obtained through the brain without the use of intravenous contrast. All CT scans use one or more of the following dose optimizing techniques: automated exposure control, MA and/or KvP adjustment based on patient size and exam type or iterative reconstruction. HISTORY: Altered mental status. Episode of unresponsiveness. COMPARISON: 05/29/2019. FINDINGS: No large acute territorial ischemia, mass, or hemorrhage. No midline shift or mass effect. Decreased attenuation is seen in the periventricular and subcortical white matter. The ventricles and cortical sulci are prominent. The basilar cisterns are patent and unremarkable. The orbits are normal. Paranasal sinuses are normal. Mastoid air cells are clear. No soft tissue abnormality is seen. No osseous lesions or fractures are seen. IMPRESSION: 1. No large acute territorial ischemia, mass, or hemorrhage. 2. Chronic microvascular disease. 3. Generalized parenchymal volume loss. Dictated by: Dictated on workstation # [id number]
[2020-10-02 11:42] LABS: BILIRUBIN,URINE NEGATIVE (NEGATIVE); CLARITY,URINE TURBID; COLOR,URINE YELLOW; GLUCOSE, URINE (UA) NEGATIVE (NEGATIVE); KETONES,URINE NEGATIVE (NEGATIVE); NITRITE,URINE NEGATIVE (NEGATIVE); PROTEIN,URINE 2+ (NEGATIVE)
[2020-10-02 11:43] LABS: AMORPHOUS SEDIMENT,UR FEW AMOR URATES /LPF; BACTERIA,URINE MODERATE /HPF; LEUKOCYTE ESTERASE ,URINE 3+ (NEGATIVE); WBC,URINE TNTC /HPF
[2020-10-02 11:45] LABS: BASOPHILS # (AUTO) 0.1 10^3/uL (0.0-0.1); BASOPHILS % (AUTO) 1 % (0-10); EOSINOPHILS # (AUTO) 0.3 10^3/uL (0.0-0.3); EOSINOPHILS % (AUTO) 3 % (0-10); HEMATOCRIT 36 % (35-52); HEMOGLOBIN 11.9 G/DL (11.5-16.0); LYMPHOCYTES # (AUTO) 1.8 X 10^3 (1.0-4.0); LYMPHOCYTES % (AUTO) 18 % (12-44); MEAN CORPUSCULAR HEMOGLOBIN 32 PG (25-34); MEAN CORPUSCULAR HGB CONC 33 G/DL (32-36); MEAN CORPUSCULAR VOLUME 95 FL (80-99); MEAN PLATELET VOLUME 9.5 FL (7.4-10.4); MONOCYTES % (AUTO) 11 % (0-12); NEUTROPHILS # (AUTO) 6.4 X 10^3 (1.8-7.8); NEUTROPHILS % (AUTO) 65 % (42-75); PLATELET COUNT 284 10^3/uL (130-400); WHITE BLOOD COUNT 9.9 10^3/uL (4.3-11.0)
[2020-10-02 11:46] LABS: MONOCYTES # (AUTO) 1.1 X 10^3 (0.0-1.0)
[2020-10-02 11:47] LABS: INR 1.4 (0.8-1.4); PROTHROMBIN TIME PATIENT 17.4 SEC (12.2-14.7)
[2020-10-02 11:48] LABS: CARBON DIOXIDE 24 MMOL/L (21-32); CHLORIDE 91 MMOL/L (98-107); POTASSIUM 4.7 MMOL/L (3.6-5.0); SODIUM 126 MMOL/L (135-145)
[2020-10-02 11:49] LABS: ALANINE AMINOTRANSFERASE 16 U/L (0-55); ALBUMIN 3.7 GM/DL (3.2-4.5); ALKALINE PHOSPHATASE 166 U/L (40-136); BILIRUBIN,TOTAL 0.4 MG/DL (0.1-1.0); BUN/CREATININE RATIO 28; CREATININE SERUM 0.58 MG/DL (0.60-1.30); GFR ESTIMATED > 60; GLUCOSE 177 MG/DL (70-105); MAGNESIUM 1.7 MG/DL (1.6-2.4); TOTAL PROTEIN 6.1 GM/DL (6.4-8.2)
--- NOTE | 2020-10-02 11:59 | Diagnostic Imaging Report ---
EXAMINATION: Chest 1 view HISTORY: Altered mental status. COMPARISON: 09/05/2020. FINDINGS: The lung volumes are normal. No focal consolidation is seen. Prominent interstitial markings are seen throughout the lungs. No large pleural effusion or pneumothorax is seen. The cardiomediastinal silhouette is stable. There is calcified aortic atherosclerotic plaque. No acute osseous abnormality is seen. Advanced degenerative changes are seen in the bilateral glenohumeral joints. IMPRESSION: 1. Prominent interstitial markings throughout the lungs, which may represent edema or infection. No focal consolidation. Dictated by: Dictated on workstation # [id number]
[2020-10-02] MEDS ORDERED: cefTRIAXone 1,000 MG in WATER (STERILE) FOR INJECTION 10 ML IV STA (12:04)
[2020-10-02] MEDS ORDERED: NS (IVPB) 250 ML IV STA (12:35)
[2020-10-02 15:01] VITALS: BP 155/82
== END 2020-10-02 15:25 | disposition short-term general hospital (02) ==
LOC: EDUNIT# 10:49 → ER FS 10:50
DX: A41.9 Sepsis, unspecified organism (principal); N39.0 Urinary tract infection, site not specified; R41.0 Disorientation, unspecified; G24.9 Dystonia, unspecified; G20 Parkinson's disease; I11.0 Hypertensive heart disease with heart failure; I50.9 Heart failure, unspecified
CPT/HCPCS: 36415; 51701; 70450; 71045; 80053; 81000; 83605; 83735; 85025; 85610; 85730; 87040; 87088; 93041

== ENCOUNTER 2020-12-27 17:09 | Emergency (ER) | payer MEDICARE, MEDICAID ==
[~2020-12-27] VITALS: Ht 139.7 cm; Wt 49.9 kg
--- OUTSIDE RECORDS SUMMARY | 2020-12-27 17:14 | XMS REPORT | Clinical Summary ---
Author Author [facility] Organization [facility] Address Unknown Phone Unavailable Care Team Providers Care Satellite Dish Technician Name Role Phone See Munson MD Unavailable Karl Santana MD PCP Source Comments Some departments are not documenting in the electronic medical record. If you d o not see the information that you expected, contact Release of Information in [facility] [employer] Information Management department at [phone] for further assistan ce in locating additional records.[facility] Allergies Comments Active Allergy Reactions Severity Noted Date Hydrochlorothiazide HYPOTENSION High 12/06/2016 Swelling of face if takes large amounts Ibuprofen EDEMA 03/24/2012 Medications End Date Status Medication Sig Dispensed Refills Start Date Active MULTIVITAMIN PO Take by 0 mouth daily. Active levothyroxine (SYNTHROID) Take 50 mcg 0 50 mcg tablet by mouth daily. Active carvedilol (COREG) 12.5 Take 12.5 mg 0 mg tablet by mouth twice daily with meals. Active FERROUS SULFATE (IRON PO) Take 325 mg 0 by mouth twice daily. Active alendronate (FOSAMAX) 70 Take 70 mg by 0 mg tablet mouth every 7 days. Take at least 30 minutes before breakfast with plain water. Do not lie down for 30 minutes. Active calcium carbonate/vitamin Take 1 tablet 0 D3 (CALCIUM + D PO) by mouth daily. Active melatonin 3 mg tab Take 5 mg by 0 mouth at bedtime daily. Active magnesium hydroxide (MILK Take 30 mL by 0 OF MAGNESIA PO) mouth as Needed. Active sodium bicarbonate 650 mg Take 650 mg 0 tablet by mouth twice daily. Active acetaminophen (TYLENOL) Take 650 mg 0 325 mg tablet by mouth every 6 hours as needed for Pain. Active docusate (COLACE) 100 mg Take 100 mg 0 capsule by mouth twice daily. Active dextromethorphan/guaiFENe Take 10 mL by 0 sin (ROBITUSSIN-DM) mouth every 6 10/100 mg/5 mL syrp oral hours as syrup needed. Active hydroxypropyl Place one 10 mL 0 methylcellulose (GENTEAL) drop into or 9 0.2 % ophthalmic solution around eye(s) as Needed. Active ELIQUIS 2.5 mg tablet Take 2.5 mg 0 03/24/19 2 by mouth 0 twice daily. Active furosemide (LASIX) 20 mg Take 20 mg by 0 03/23 tablet mouth every 0 48 hours. Active escitalopram oxalate Take one 0 (LEXAPRO) 20 mg tablet by 0 tabletIndications: Other mouth at depression bedtime daily. Active lisinopriL (ZESTRIL) 5 mg Take 2.5 mg 0 tablet by mouth at bedtime daily. Active pantoprazole DR Take 40 mg by 0 (PROTONIX) 40 mg tablet mouth twice daily. Active oxyCODONE/acetaminophen Take 2 0 (PERCOCET) 5/325 mg tablets by tablet mouth daily May take 1-2 tablets prn daily Active potassium chloride SR Take 20 mEq 0 (K-DUR) 20 mEq tablet by mouth daily. Take with a meal and a full glass of water. Active cyanocobalamin (VITAMIN Take 500 mcg 0 B-12) 500 mcg tablet by mouth daily. Active carbidopa/levodopa 1.5 tab at 270 tablet 0 05/11/ 02 (SINEMET) 25/100 mg 8a, 1 tab at 1 tabletIndications: 12n, 1.5 tab Parkinson disease (HCC) 4, 1 tab 8p plus one tab prn Active gabapentin (NEURONTIN) Take one 30 capsule 0 100 mg capsule capsule by 1 mouth at bedtime daily. Active vit A/vit C/vit Take by 0 E/zinc/copper mouth. (PRESERVISION AREDS PO) Active ondansetron (ZOFRAN ODT) Dissolve by 0 4 mg rapid dissolve mouth every 8 tablet hours as needed for Nausea or Vomiting. Place on tongue to disolve. Active pimavanserin (NUPLAZID) Take one 30 capsule 5 34 mg capsule capsule by 1 mouth daily. Active Problems Problem Noted Date Osteoporosis, idiopathic 12/16/2017 Memory change 06/17/2016 Overview: Formatting of this note might be differ ent from the original. 06/17/2016 Immediate Recall: 5/5 Delayed Recall: 3/5 Verbal Fluency: 21 MOCA Score (out of 30): 27 08/05/2017 Immediate Recall: 5/5 Delayed Recall: 4/5 Verbal Fluency: 20 07/16/2018 Immediate Recall: 2/5 Delayed Recall: 4/5 Verbal Fluency: 18 L ast Assessment & Plan: Formatting of this note might be differ ent from the original. Her symptoms are stable. No medication changes were recommended during the current visit. PD Psychosis 12/28/2015 Overview: Formatting of this note might be differ ent from the original. Marked improvement with Nuplazid (pimav anserin) L ast Assessment & Plan: Formatting of this note might be differ ent from the original. Her symptoms are stable. No medication changes were recommended during the current visit. Depression 05/03/2015 Overview: Formatting of this note might be differ ent from the original. 08/05/2017 Geriatric Depression Scale: 1 2 07/16/2018 Geriatric Depression Scale: 13 03/30/2019 On Lexapro (escitalopram) L ast Assessment & Plan: Formatting of this note might be differ ent from the original. Her symptoms are stable. No medication changes were recommended during the current visit. Parkinson disease 03/24/2012 Overview: Formatting of this note might be differ ent from the original. Symptoms began in 2005, initial symptom s was left sided stiffness. Diagnosed with Parkinson's disease. [facility] PD Features: Tremor Absent 06/11/2013 Patient was evaluated by [facility] pational Therapist, Susan Crawford. [facility] PDQ 39 IMPACT PDQ Total Percent: 16.67 % 05/03/2015 PDQ Total Percent: 39.1 % 12/29/2015 PDQ8 Total %: 9 Mirapex (pramipexole) was discontinued due to hallucination. 06/17/2016 PDQ Total Percent: 41.67 % 08/05/2017 PDQ Total Percent: 38.46 % 04/18/2018 PDQ8 Total %: 72 07/16/2018 PDQ Total Percent: 57.69 % 03/30/2019 PDQ8 Total %: 59 L ast Assessment & Plan: Formatting of this note might be differ ent from the original. Symptoms are worse since the last visit but no medication changes were recommended during the current visit. Hypersomnia 03/24/2012 Overview: Formatting of this note might be differ ent from the original. 11/22/10 Norman Sleepiness Scale 14 06/11/2013 Norman Sleepiness Scale: 11 01/27/2014 Norman Sleepiness Scale: 11 08/05/2017 Norman Sleepiness Scale: 16 L ast Assessment & Plan: Formatting of this note might be differ ent from the original. I recommended reducing Neurontin (gabap entin) 100 mg at bedtime. Fatigue 03/24/2012 Last Assessment & Plan: Formatting of this note might be differ ent from the original. Her symptoms are not bothersome and no medication changes were recommended during the current visit. Encounters Care Team Description Date Type Specialty See Munson MD 11/24/2020 Refill Neurology See Munson MD 11/23/2020 Refill Neurology from Last 3 Months Surgical History Surgery Date Site/Laterality Comments CATARACT REMOVAL HYSTERECTOMY TUMOR REMOVAL on brain KNEE REPLACEMENT 04/01/2012 right knee HIP FRACTURE TX 03/18/2014 - Right Partial replac ement 03/17/2015 HIP SURGERY 05/17/2015 - Right 2015 and 2016 06/16/2015 KNEE REPLACEMENT 09/15/2016 - Left 10/15/2016 Medical History Medical History Date Comments Shingles DM (diabetes mellitus screen) Brain tumor (HCC) History of intraocular lens implant left eye Radiation for brain tumor Parkinson disease (HCC) Fracture 2016 left shoulder rotat or cuff fracture Family History Medical History Relation Name Comments Parkinson's Son Relation Name Status Comments Son Social History Date Tobacco Use Types Packs/Day Years Used Never Smoker Smokeless Tobacco: Never Used Comments Alcohol Use Standard Drinks/Week No 0 (1 standard drink = 0.6 o z pure alcohol) Sex Assigned at Date Recorded Not on file Last Filed Vital Signs Reading Time Taken Comments Vital Sign 124/75 03/30/2019 10:39 AM BLENDER MACHINE OPERATOR Blood Pressure 58 03/30/2019 10:39 AM BLENDER MACHINE OPERATOR Pulse - - Temperature 12 03/30/2019 10:39 AM BLENDER MACHINE OPERATOR Respiratory Rate - - Oxygen Saturation - - Inhaled Oxygen Concentration 49.9 kg (110 lb) 03/30/2019 10:39 AM BLENDER MACHINE OPERATOR per patient Weight 144 cm (4' 8.69") 03/30/2019 10:39 AM BLENDER MACHINE OPERATOR Height 24.06 03/30/2019 10:39 AM BLENDER MACHINE OPERATOR Body Mass Index Plan of Treatment Health Maintenance Due Date Last Done Comments MEDICARE ANNUAL WELLNESS 1935 VISIT DTAP/TDAP VACCINES (1 - 1951 Tdap) PHYSICAL (COMPREHENSIVE) 1951 EXAM SHINGLES RECOMBINANT 1983 VACCINE (1 of 2) OSTEOPOROSIS 1998 SCREENING/MONITORING PNEUMONIA (PPSV23) 1998 VACCINE (1 of 1 - PPSV23) INFLUENZA VACCINE 10/16/2020 Results Not on filefrom Last 3 Months Insurance Type Payer Benefit Subscriber ID Effective Phone Address Plan / Dates Group Medicare AETNA MEDICARE AETNA [id number] 2019-P MEDICARE resent PPO Medicaid [employer] [place] [employer] [id number] 2010- STATE Present HEALTH [id number] Advance Directives Patient Social Work Specialist Explanation Type Date Recorded Advance Directive/DPOA
--- OUTSIDE RECORDS SUMMARY | 2020-12-27 17:14 | XMS REPORT | Encounter Summary ---
Author Author [facility] Organization [facility] Address Unknown Phone Unavailable Care Team Providers Care Casting Director Name Role Phone See Munson MD Unavailable Karl Santana MD PCP Reason for Visit * Reason Onset Date Comments Medication Refill Medication Refill 11/24/2020 Encounter Details Care Team Description Date Type Department See Munson MD [address] [place] [address] 11/23/2020 Refill Neurology: [facility] [address] [place] [address] Social History Date Tobacco Use Types Packs/Day Years Used Never Smoker Smokeless Tobacco: Never Used Comments Alcohol Use Standard Drinks/Week No 0 (1 standard drink = 0.6 o z pure alcohol) Sex Assigned at Date Recorded Not on file documented as of this encounter Functional Status Date of Assessment Functional Status Response 11/09/2019 Does the patient have a hearing impairment: Yes 11/09/2019 Does the patient have a visual impairment: Yes 11/09/2019 Does the patient have impaired ambulation: Yes 11/09/2019 Does the patient have an activity of daily living Ye s (ADL) impairment: 11/09/2019 Does the patient have an instrumental activity of Ye s daily living (IADL) impairment: Date of Assessment Cognitive Status Response 11/09/2019 Does the patient have a cognitive impairment: No documented as of this encounter Miscellaneous Notes * Telephone Encounter - Jade Bassett RN - 11/24/2020 3:12 PM CDT [facility] requesting refills of pimavanserin. JASMIN 08/08/2020. NOV 2020. Refills sent. documented in this encounter Plan of Treatment Not on filedocumented as of this encounter Visit Diagnoses Not on filedocumented in this encounter Additional Health Concerns Assessment Noted Time A Body Mass Index follow-up plan has been documented for the patient 03/30/2019 11:36 AM TOOL MACHINE SHOP SUPERVISOR PHQ-2 Depression Total Score: 2 08/08/2020 11:54 AM CDT documented as of this encounter
--- OUTSIDE RECORDS SUMMARY | 2020-12-27 17:14 | XMS REPORT | Encounter Summary ---
Author Author [facility] Organization [facility] Address Unknown Phone Unavailable Care Team Providers Care Research Associate Professor Name Role Phone See Munson MD Unavailable Karl Santana MD PCP Reason for Visit * Reason Onset Date Comments Medication Refill Medication Refill 11/24/2020 Encounter Details Care Team Description Date Type Department See Munson MD [address] [place] [address] 11/24/2020 Refill Neurology: [facility] [address] [place] [address] Social History Date Tobacco Use [...] impairment: No documented as of this encounter Ordered Prescriptions Start Date End Date Prescription Sig Dispensed Refills 11/24/2020 pimavanserin (NUPLAZID) Take one 30 capsule 5 34 mg capsule capsule by mouth daily. documented in this encounter Plan of Treatment Not on filedocumented as of this encounter Visit Diagnoses Not on filedocumented in this encounter Discontinued Medications Start Date End Date Medication Sig Discontinue Reason 04/19/2020 11/24/2020 pimavanserin (NUPLAZID) Take one Reorder 34 mg capsule capsule by mouth daily. documented as of this encounter Additional Health Concerns Assessment Noted Time A Body Mass Index follow-up plan has been documented for the patient 03/30/2019 11:36 AM SIGNAL MAINTAINER HELPER PHQ-2 Depression Total Score: 2 08/08/2020 11:54 AM CDT documented as of this encounter
--- OUTSIDE RECORDS SUMMARY | 2020-12-27 17:14 | XMS REPORT | Clinical Summary ---
Author Author [facility] Organization [facility] Address Unknown Phone Unavailable Care Team Providers Care Business Asst Name Role Phone Karl Santana MD PCP Allergies Comments Active Allergy Reactions Severity Noted Date Hydrochlorothiazide Hypotension High 12/06/2016 Swelling of face if takes large amounts Ibuprofen Edema 03/24/2012 Medications End Date Status Medication Sig Dispensed Refills Start Date Active calcium polycarbophil 500 Chew. 0 mg Chew Active carbidopa-levodopa 0 (SINEMET) 25-100 mg per 7 tablet Active carvedilol (COREG) 12.5 0 MG tablet 7 Active clopidogrel (PLAVIX) 75 0 mg tablet 7 Active levothyroxine (SYNTHROID, 0 LEVOTHROID) 50 MCG tablet 7 Active losartan (COZAAR) 50 MG Take by 0 tablet mouth. Active pantoprazole (PROTONIX) 0 20 MG tablet 7 Active pramipexole (MIRAPEX) 0 0.25 MG tablet 7 Active oxyCODONE-acetaminophen Take 1 tablet 20 tablet 0 (PERCOCET) 5-325 mg per by mouth 7 tablet every 4 (four) hours as needed. Active Problems Not on file Social History Date Tobacco Use Types Packs/Day Years Used Never Assessed Sex Assigned at Date Recorded Not on file Last Filed Vital Signs Reading Time Taken Comments Vital Sign 132/78 01/23/2017 10:22 AM ELECTRIC METER INSTALLER HELPER Blood Pressure 74 01/23/2017 10:22 AM ELECTRIC METER INSTALLER HELPER Pulse 36.5 C (97.7 F) 01/23/2017 10:22 AM ELECTRIC METER INSTALLER HELPER Temperature 16 01/23/2017 10:22 AM ELECTRIC METER INSTALLER HELPER Respiratory Rate 99% 01/23/2017 10:22 AM ELECTRIC METER INSTALLER HELPER Oxygen Saturation - - Inhaled Oxygen Concentration 47.6 kg (105 lb) 01/23/2017 10:22 AM ELECTRIC METER INSTALLER HELPER Weight 147.3 cm (4' 10") 01/23/2017 10:22 AM ELECTRIC METER INSTALLER HELPER Height 21.95 01/23/2017 10:22 AM ELECTRIC METER INSTALLER HELPER Body Mass Index Plan of Treatment Health Maintenance Due Date Last Done Comments Advance Directive has 1933 been filed Td/Tdap# 1935 COVID-19 Vaccine (1) 1945 Zoster Vaccine# (1 of 2) 1983 Advance Directive 1998 Conversation Fall Risk Assessment # 1998 Osteoporosis Screening 1998 Patient Needs Advance 1998 Directive Pneumococcal Vaccine: 65+ 1998 Years (1 of 1 - PPSV23) Influenza Vaccine (#1) 2020 Results Not on filefrom Last 3 Months Advance Directives For more information, please contact: [phone] Patient Marketing Pr Intern Explanation Type Date Recorded Advance Directives and Living Will Power of Stable Manager
--- NOTE | 2020-12-27 17:15 | ED Dyspnea ---
General Stated Complaint: LOW O2 Source of Information: Patient, Caregiver Exam Limitations: No Limitations History of Present Illness Date Seen by Provider: Dec 27, 2020 Time Seen by Provider: 17:14 Initial Comments sent from [place] w complaint of low oxygen....stated upper 80's and not on home oxygen. Arrives on oxygen w portable tank. Pt without complaint. Allergies and Home Medications Allergies Coded Allergies: hydrochlorothiazide (Verified Allergy, Unknown, 01/07/19) ibuprofen (Verified Allergy, Unknown, 01/07/19) Patient Home Medication List Home Medication List Reviewed: Yes Review of Systems Review of Systems Constitutional: No fever, No malaise, No weakness Respiratory: No cough, No short of breath Cardiovascular: No chest pain, No palpitations, No syncope Gastrointestinal: No abdominal pain Past Htblhhj-Fyemsb-Akccba Hx Patient Social History Tobacco Use?: No Seasonal Allergies Seasonal Allergies: No Past Medical History Surgeries: Yes (Right Total Hip Replacement) Orthopedic Respiratory: No Cardiac: Yes (CHF) Atrial Fibrillation, Hypertension, Irregular Heartbeat Neurological: Yes Parkinson's Disease Genitourinary: Yes (Overactive Bladder) Gastrointestinal: Yes Gastroesophageal Reflux, Gastrointestinal Bleed Musculoskeletal: Yes Arthritis Endocrine: Yes Hypothyroidsim HEENT: No Cancer: No Psychosocial: Yes Anxiety, Depression Integumentary: No Blood Disorders: Yes (Anemia) Physical Exam Vital Signs Vital Signs - First Documented 12/27/20 12/27/20 12/27/20 17:12 17:21 17:41 Temp 36.0 Pulse 87 Resp 17 B/P (MAP) 124/92 (103) Pulse Ox 99 O2 Delivery Room Air Capillary Refill : Height, Weight, BMI Height: '" Weight: lbs. oz. kg; 24.00 BMI Method: General Appearance: No Apparent Distress, Chronically ill HEENT: PERRL/EOMI, Normal ENT Inspection Neck: Non Tender, Supple Respiratory: Chest Non Tender, Lungs Clear, Normal Breath Sounds Cardiovascular: Regular Rate, Rhythm, No Edema, No JVD Gastrointestinal: Non Tender, Soft Extremity: Normal Capillary Refill, Non Tender Neurologic/Psychiatric: Alert, No Motor/Sensory Deficits Skin: Normal Color, Warm/Dry Progress/Results/Core Measures Results/Orders Vital Signs/I&O 12/27/20 12/27/20 12/27/20 17:12 17:21 17:41 Temp 36.0 Pulse 87 84 Resp 17 18 B/P (MAP) 124/92 (103) 122/86 Pulse Ox 99 O2 Delivery Room Air Room Air Room Air Departure Impression Primary Impression: Feared condition not demonstrated Disposition: 01 HOME, SELF-CARE Condition: Stable Departure-Patient Inst. Decision time for Depature: 17:37 Referrals: ELIE MCKOY (PCP) Primary Care Physician NADIA BROWN MD (Family) Primary Care Physician Add. Discharge Instructions: continue current medications and routine care. Call your medical doctor for any further questions or concerns. Return to the ER with any developing emergent conditions CARIE STEVENSON DO Dec 27, 2020 17:15
[2020-12-27 17:41] VITALS: BP 122/86
== END 2020-12-27 17:41 | disposition home or self-care (01) ==
LOC: EDUNIT# 17:09 → ER FS 17:10
DX: Z71.1 Person with feared health complaint in whom no diagnosis is made (principal); I11.0 Hypertensive heart disease with heart failure; I50.9 Heart failure, unspecified; G20 Parkinson's disease
CPT/HCPCS: 99282

== ENCOUNTER 2020-12-27 18:17 | Emergency (ER) | payer MEDICARE, MEDICAID ==
[~2020-12-27] VITALS: Ht 147.3 cm; Wt 49.9 kg
--- OUTSIDE RECORDS SUMMARY | 2020-12-27 18:22 | XMS REPORT | Encounter Summary ---
Author Author [facility] Organization [facility] Address Unknown Phone Unavailable Care Team Providers Care Data Integration Architect Name Role Phone See Munson MD Unavailable Karl Santana MD PCP Reason for Visit * Reason Onset Date Comments Medication Refill Medication Refill 11/24/2020 Encounter Details Care Team Description Date Type Department See Munson MD [address] [place] [address] 11/23/2020 Refill Neurology: [facility] [address] [facility] [place] [address] Social History Date Tobacco Use [...] Bassett RN - 11/24/2020 3:12 PM CDT [facility] requesting refills of pimavanserin. JASMIN 08/08/2020. NOV 2020. Refills sent. documented in this encounter Plan of Treatment Not on filedocumented as of this encounter Visit Diagnoses Not on filedocumented in this encounter Additional Health Concerns Assessment Noted Time A Body Mass Index follow-up plan has been documented for the patient 03/30/2019 11:36 AM TOPOGRAPHICAL DRAFTER PHQ-2 Depression Total Score: 2 08/08/2020 11:54 AM CDT documented as of this encounter
--- NOTE | 2020-12-27 19:01 | ED General ---
General Chief Complaint: General Problems/Pain Stated Complaint: LOW O2 History of Present Illness Date Seen by Provider: Dec 27, 2020 Time Seen by Provider: 18:50 Initial Comments 85-year-old female, recently discharged from this ER with presenting complaint of low oxygen and found not to have low oxygen, but rather normal oxygen of 99%. [facility] and an uneventful ER interaction. Shortly after discharge, patient's daughter arrived and was very upset that we had not addressed other concerns. See nurses note for details, allegedly [facility] staff called this ER and spoke to give report, however no report was given to any of our staff regarding this patient. Nonetheless, her daughter relates that she has had a 6 pound weight gain over the past few days, has a history of CHF and had labs drawn this morning showing a low sodium. She currently is on Coreg for CHF as well as every other day Lasix at 20 mg. Patient is without complaint, denies shortness of air or chest pain. Denies abdominal pain or nausea. She does have ongoing problems with constipation and her last bowel movement was 1/2 days ago. She currently has a UTI and her antibiotic was switched to Macrobid today based off of recent urinary culture results. Allergies and Home Medications Allergies Coded Allergies: hydrochlorothiazide (Verified Allergy, Unknown, 01/07/19) ibuprofen (Verified Allergy, Unknown, 01/07/19) Patient Home Medication List Home Medication List Reviewed: Yes Review of Systems Review of Systems Constitutional: No fever, No malaise Respiratory: No cough, No short of breath Cardiovascular: see HPI; No chest pain; edema (minimal LE); No syncope Gastrointestinal: No abdominal pain; constipation; No nausea, No vomiting Musculoskeletal: no symptoms reported Skin: No change in color, No rash Past Rdzoiow-Uklgmh-Xbmshh Hx Patient Social History Tobacco Use?: No Smoking Status: Never a Smoker Smokeless Tobacco Frequency: Never a User Use of E-Cig and/or Vaping Spike: Never a User Substance use?: No Alcohol Use?: No Pt feels they are or have been: No Immunizations Up To Date First/Initial COVID19 Vaccinat: 03/2020 Second COVID19 Vaccination Jesús: 04/2020 Seasonal Allergies Seasonal Allergies: No Past Medical History Surgeries: Yes (Right Total Hip Replacement) Orthopedic Respiratory: No Cardiac: Yes (CHF) Atrial Fibrillation, Hypertension, Irregular Heartbeat Neurological: Yes Parkinson's Disease Genitourinary: Yes (Overactive Bladder) Gastrointestinal: Yes Gastroesophageal Reflux, Gastrointestinal Bleed Musculoskeletal: Yes Arthritis Endocrine: Yes Hypothyroidsim HEENT: No Cancer: No Psychosocial: Yes Anxiety, Depression Integumentary: No Blood Disorders: Yes (Anemia) Physical Exam Vital Signs Vital Signs - First Documented 12/27/20 18:41 Temp 36.1 Pulse 76 Resp 20 B/P (MAP) 161/84 (109) O2 Delivery Room Air Capillary Refill : Height, Weight, BMI Height: '" Weight: lbs. oz. kg; 25.00 BMI Method: General Appearance: No Apparent Distress, Chronically ill; No Mild Distress HEENT: PERRL/EOMI, Normal ENT Inspection Neck: Non Tender, Supple Respiratory: Chest Non Tender, Lungs Clear, Normal Breath Sounds, No Accessory Muscle Use, No Respiratory Distress Cardiovascular: Regular Rate, Rhythm, No Gallop, No JVD, Other (mild LE edema) Gastrointestinal: Non Tender, Soft; No Distended, No Guarding Back: No CVA Tenderness, No Vertebral Tenderness Extremity: Normal Inspection, Non Tender Neurologic/Psychiatric: Alert, Oriented x3, Normal Mood/Affect Skin: Normal Color, Warm/Dry Progress/Results/Core Measures Suspected Sepsis SIRS Temperature: Pulse: Respiratory Rate: Laboratory Tests 12/27/20 19:12: White Blood Count 8.7 Blood Pressure / Mean: Laboratory Tests 12/27/20 19:12: Creatinine 0.49L, Platelet Count 352, Total Bilirubin 0.3 Results/Orders Lab Results Laboratory Tests Test 12/27/20 19:12 Range/Units White Blood Count 8.7 4.3-11.0 10^3/uL Red Blood Count 3.20 L 3.80-5.11 10^6/uL Hemoglobin 10.1 L 11.5-16.0 g/dL Hematocrit 30 L 35-52 % Mean Corpuscular Volume 93 80-99 fL Mean Corpuscular Hemoglobin 32 25-34 pg Mean Corpuscular Hemoglobin Concent 34 32-36 g/dL Red Cell Distribution Width 18.1 H 10.0-14.5 % Platelet Count 352 130-400 10^3/uL Mean Platelet Volume 9.1 9.0-12.2 fL Immature Granulocyte % (Auto) 1 % Neutrophils (%) (Auto) 60 42-75 % Lymphocytes (%) (Auto) 25 12-44 % Monocytes (%) (Auto) 10 0-12 % Eosinophils (%) (Auto) 3 0-10 % Basophils (%) (Auto) 1 0-10 % Neutrophils # (Auto) 5.2 1.8-7.8 X 10^3 Lymphocytes # (Auto) 2.2 1.0-4.0 X 10^3 Monocytes # (Auto) 0.9 0.0-1.0 X 10^3 Eosinophils # (Auto) 0.2 0.0-0.3 10^3/uL Basophils # (Auto) 0.1 0.0-0.1 10^3/uL Immature Granulocyte # (Auto) 0.1 0.0-0.1 10^3/uL Sodium Level 121 *L 135-145 MMOL/L Potassium Level 4.7 3.6-5.0 MMOL/L Chloride Level 86 L 98-107 MMOL/L Carbon Dioxide Level 24 21-32 MMOL/L Anion Gap 11 5-14 MMOL/L Blood Urea Nitrogen 12 7-18 MG/DL Creatinine 0.49 L 0.60-1.30 MG/DL Estimat Glomerular Filtration Rate 119 BUN/Creatinine Ratio 24 Glucose Level 122 H 70-105 MG/DL Calcium Level 8.1 L 8.5-10.1 MG/DL Corrected Calcium 8.7 8.5-10.1 MG/DL Total Bilirubin 0.3 0.1-1.0 MG/DL Aspartate Amino Transf (AST/SGOT) 21 5-34 U/L Alanine Aminotransferase (ALT/SGPT) 5 0-55 U/L Alkaline Phosphatase 190 H 40-136 U/L Pro-B-Type Natriuretic Peptide 3713.0 H <75.0 PG/ML Total Protein 5.7 L 6.4-8.2 GM/DL Albumin 3.3 3.2-4.5 GM/DL My Orders Orders - TONYAVENSTCARIE ISRAEL DO Ed Iv/Invasive Line Start (12/27/20 18:54) Cbc With Automated Diff (12/27/20 18:54) Comprehensive Metabolic Panel (12/27/20 18:54) Probnp Fs (12/27/20 18:54) Chest 1 View Ap/Pa Only (12/27/20 18:54) Vital Signs/I&O 12/27/20 18:41 Temp 36.1 Pulse 76 Resp 20 B/P (MAP) 161/84 (109) O2 Delivery Room Air Capillary Refill : Progress Note : Progress Note Patient w asymptomatic Hyponatremia with gradual decline from August @ 130, then September 128-126 and this morning 123....now 121. Otherwise stable and in no distress. Discussed treatment and made recommendations to fluid restrict @ [facility] as well as add a little salt to her diet, taking daily Lasix and repeat labs in 1 wk. Diagnostic Imaging Diagonstic Imaging: Xray Plain Films/CT/US/NM/MRI: chest Comments Date of Exam:12/27/20 CHEST 1 VIEW AP/PA ONLY INDICATION: Weight gain. COMPARISON: 10/02/2020 FINDINGS: There is cardiomegaly. There is minimal venous congestion. There is bibasilar subsegmental atelectasis and/or pneumonitis. There is no pneumothorax. The mediastinum is unremarkable IMPRESSION: Bibasilar subsegmental atelectasis and/or pneumonitis. Cardiomegaly and some mild central pulmonary venous congestion. Dictated on workstation # [id number] Dict: 12/27/201904 Trans: 12/27/201907 [facility] [phone] Interpreted by: JEREMY AMEZCUA MD Electronically signed by: Departure Impression Primary Impression: Congestive heart failure (CHF) Qualified Codes: I50.9 - Heart failure, unspecified Additional Impressions: Hyponatremia Anemia Qualified Codes: D64.9 - Anemia, unspecified Disposition: 01 HOME, SELF-CARE Condition: Stable Departure-Patient Inst. Referrals: ELIE MCKOY (PCP) Primary Care Physician NADIA BROWN MD (Family) Primary Care Physician Patient Instructions: Heart Failure, Adult (DC), Hyponatremia (DC) Add. Discharge Instructions: Take your Lasix daily for 1 week, then see your PCP to recheck your labs. Restrict water intake to 1.0 liters per day. OK to add some salt to your food (less than 2 grams per day) All discharge instructions reviewed with patient and/or family. Voiced understa nding. CARIE STEVENSON DO Dec 27, 2020 19:01
--- NOTE | 2020-12-27 19:08 | Diagnostic Imaging Report ---
INDICATION: Weight gain. COMPARISON: 10/02/2020 FINDINGS: There is cardiomegaly. There is minimal venous congestion. There is bibasilar subsegmental atelectasis and/or pneumonitis. There is no pneumothorax. The mediastinum is unremarkable IMPRESSION: Bibasilar subsegmental atelectasis and/or pneumonitis. Cardiomegaly and some mild central pulmonary venous congestion. Dictated by: Dictated on workstation # [id number]
[2020-12-27 19:23] LABS: BASOPHILS # (AUTO) 0.1 10^3/uL (0.0-0.1); BASOPHILS % (AUTO) 1 % (0-10); EOSINOPHILS # (AUTO) 0.2 10^3/uL (0.0-0.3); EOSINOPHILS % (AUTO) 3 % (0-10); HEMATOCRIT 30 % (35-52); HEMOGLOBIN 10.1 g/dL (11.5-16.0); LYMPHOCYTES # (AUTO) 2.2 X 10^3 (1.0-4.0); LYMPHOCYTES % (AUTO) 25 % (12-44); MEAN CORPUSCULAR HEMOGLOBIN 32 pg (25-34); MEAN CORPUSCULAR HGB CONC 34 g/dL (32-36); MEAN CORPUSCULAR VOLUME 93 fL (80-99); MEAN PLATELET VOLUME 9.1 fL (9.0-12.2); MONOCYTES # (AUTO) 0.9 X 10^3 (0.0-1.0); MONOCYTES % (AUTO) 10 % (0-12); NEUTROPHILS # (AUTO) 5.2 X 10^3 (1.8-7.8); NEUTROPHILS % (AUTO) 60 % (42-75); PLATELET COUNT 352 10^3/uL (130-400); WHITE BLOOD COUNT 8.7 10^3/uL (4.3-11.0)
[2020-12-27 19:52] LABS: POTASSIUM 4.7 MMOL/L (3.6-5.0)
[2020-12-27 19:53] LABS: ALBUMIN 3.3 GM/DL (3.2-4.5); BILIRUBIN,TOTAL 0.3 MG/DL (0.1-1.0); CALCIUM 8.1 MG/DL (8.5-10.1); CREATININE SERUM 0.49 MG/DL (0.60-1.30); TOTAL PROTEIN 5.7 GM/DL (6.4-8.2)
[2020-12-27 20:54] VITALS: BP 161/84
== END 2020-12-27 21:19 | disposition home or self-care (01) ==
LOC: EDUNIT# 18:17 → ER FS 18:18
DX: I11.0 Hypertensive heart disease with heart failure (principal); I50.9 Heart failure, unspecified; E87.1 Hypo-osmolality and hyponatremia; D64.9 Anemia, unspecified; N39.0 Urinary tract infection, site not specified; G20 Parkinson's disease; Z79.2 Long term (current) use of antibiotics; Z79.899 Other long term (current) drug therapy
CPT/HCPCS: 36415; 71045; 80053; 83735; 83880; 85025

== ENCOUNTER → 2020-12-27 | Outpatient (CLI) | payer MEDICARE, MEDICAID ==
[2020-12-27 15:04] LABS: HEMATOCRIT 34 % (35-52); HEMOGLOBIN 11.3 g/dL (11.5-16.0); MEAN CORPUSCULAR HEMOGLOBIN 31 pg (25-34); MEAN CORPUSCULAR HGB CONC 33 g/dL (32-36); MEAN CORPUSCULAR VOLUME 94 fL (80-99); MEAN PLATELET VOLUME 9.1 fL (9.0-12.2); NEUTROPHILS % (AUTO) 63 % (42-75); PLATELET COUNT 384 10^3/uL (130-400); WHITE BLOOD COUNT 9.8 10^3/uL (4.3-11.0)
[2020-12-27 15:05] LABS: BASOPHILS # (AUTO) 0.1 10^3/uL (0.0-0.1); BASOPHILS % (AUTO) 1 % (0-10); EOSINOPHILS # (AUTO) 0.2 10^3/uL (0.0-0.3); EOSINOPHILS % (AUTO) 2 % (0-10); LYMPHOCYTES # (AUTO) 2.2 X 10^3 (1.0-4.0); LYMPHOCYTES % (AUTO) 23 % (12-44); MONOCYTES # (AUTO) 0.9 X 10^3 (0.0-1.0); MONOCYTES % (AUTO) 9 % (0-12); NEUTROPHILS # (AUTO) 6.2 X 10^3 (1.8-7.8)
[2020-12-27 15:06] LABS: BAND NEUTROPHILS 2 %; BASOPHILS % (MANUAL) 1 %; EOSINOPHILS % (MANUAL) 2 %; LYMPHOCYTES % (MANUAL) 30 %; MONOCYTES % (MANUAL) 9 %; NEUTROPHILS % (MANUAL) 56 %; PLATELET ESTIMATE ADEQUATE
[2020-12-27 15:07] LABS: ANISOCYTOSIS SLIGHT; POLYCHROMASIA SLIGHT; RBC MORPH NORMAL
[2020-12-27 16:14] LABS: POTASSIUM 4.6 MMOL/L (3.6-5.0)
[2020-12-27 16:15] LABS: ALBUMIN 3.8 GM/DL (3.2-4.5); BILIRUBIN,TOTAL 0.4 MG/DL (0.1-1.0); CALCIUM 8.7 MG/DL (8.5-10.1); CREATININE SERUM 0.59 MG/DL (0.60-1.30); TOTAL PROTEIN 6.2 GM/DL (6.4-8.2)
== END ==
PROVIDERS: ATTEND Nurse Practitioner
DX: I50.33 Acute on chronic diastolic (congestive) heart failure (principal)
CPT/HCPCS: 36415; 80053; 83880; 85007; 85027

== ENCOUNTER → 2021-07-23 | Outpatient (CLI) | payer MEDICARE, MEDICAID ==
[2021-07-23 15:29] LABS: BILIRUBIN,URINE NEGATIVE (NEGATIVE); CLARITY,URINE CLEAR; COLOR,URINE YELLOW; GLUCOSE, URINE (UA) NEGATIVE (NEGATIVE); KETONES,URINE NEGATIVE (NEGATIVE); LEUKOCYTE ESTERASE ,URINE 1+ (NEGATIVE); NITRITE,URINE NEGATIVE (NEGATIVE); PROTEIN,URINE NEGATIVE (NEGATIVE)
[2021-07-23 15:31] LABS: BACTERIA,URINE FEW /HPF; RBC,URINE 25-50 /HPF; WBC,URINE 25-50 /HPF
== END ==
PROVIDERS: ATTEND Family Medicine
DX: R50.9 Fever, unspecified (principal)
CPT/HCPCS: 81000; 87088